=== PATIENT | male | born 1965 | race Caucasian/White ===

== ENCOUNTER 2021-10-08 15:02 | Outpatient (REF) | payer OTHER, SELFPAY ==
[2021-10-08 15:55] LABS: Blood Urea Nitrogen 14 mg/dL (9-16); Estimated Glomerular Filt Rate > 60
== END 2021-10-08 15:03 | disposition home or self-care (01) ==
LOC: HO.LAB 15:02
PROVIDERS: PCP Family Medicine; Visit Provider Family Medicine
DX: Z01.812 Encounter for preprocedural laboratory examination (principal); I10 Essential (primary) hypertension
CPT/HCPCS: 36415; 82565; 84520

== ENCOUNTER 2021-10-14 10:27 | Outpatient (REF) | payer OTHER, SELFPAY ==
--- NOTE | ~2021-10-14 | CT_ITS ---
EXAMINATION: CT ANGIOGRAM ABDOMEN CLINICAL INFORMATION: Essential hypertension. COMPARISON: CTA of abdomen 09/20/2010 TECHNIQUE: Multiple axial images were obtained through the abdomen following the administration of 80 mL Omnipaque 350 intravenous contrast. Images were reviewed on a dedicated 3-D workstation. This CT examination was performed using dose optimization techniques as appropriate, variously including the following: *Automated exposure control *Adjustment of mA and/or kV according to patient size (this includes techniques or standardized protocols for targeted exams where dose is matched to indication/reason for exam; i.e. extremities or head) *Use of iterative reconstruction technique DLP: 145 mGy-cm VASCULAR FINDINGS: The abdominal aorta and the visualized iliac vessels appear normal. No aneurysm. The celiac, SMA and MONICA are all patent. On the right, there are 2 equal sized renal arteries which are widely patent. On the left, there is a small accessory upper pole branch and a larger more dominant renal artery. No stenoses are seen. NONVASCULAR FINDINGS: LUNG BASES: The visualized lung bases are unremarkable. LIVER, GALLBLADDER, AND BILIARY TREE: The liver is normal in size, shape, and attenuation. No focal hepatic lesion or biliary ductal dilatation is present. The gallbladder is unremarkable with no evidence of radiopaque gallstones, gallbladder wall thickening, or obvious pericholecystic inflammatory changes. PANCREAS: Unremarkable. SPLEEN: Unremarkable. A small splenule is present. ADRENAL GLANDS: Unremarkable. No adrenal masses are seen. KIDNEYS AND URETERS: The kidneys are normal in size, shape, and attenuation. No hydronephrosis, hydroureter, or calculi seen. No perinephric stranding. GASTROINTESTINAL TRACT: The visualized bowel appears unremarkable. A few colonic diverticula are seen. ABDOMINAL WALL: No significant hernia is appreciated. LYMPH NODES: No retroperitoneal lymphadenopathy. Osseous structures: Degenerative changes are present in the spine most marked from L2 through L4. CT/CT angio abdomen IMPRESSION: 1. No evidence of renal artery stenosis. 2. Other incidental findings as described above. Fleischner guidelines were followed.
[2021-10-14] MEDS: iohexoL 350 MG/ML 100 ML INFUS..BTL 80 ML IV (11:25)
== END 2021-10-14 10:28 | disposition home or self-care (01) ==
LOC: HO.CT 10:27
PROVIDERS: Visit Provider Family Medicine
DX: I15.0 Renovascular hypertension (principal)
CPT/HCPCS: 74175; Q9967

== ENCOUNTER 2022-03-14 10:31 | Outpatient (REF) | payer OTHER, SELFPAY ==
[2022-03-14 11:21] LABS: Anion Gap 12 (12-20); Blood Urea Nitrogen 13 mg/dL (9-16); Carbon Dioxide 30 mmol/L (22-29); Chloride 94 mmol/L (96-108); Cholesterol 247 mg/dL; Estimated Glomerular Filt Rate > 60; Glucose Fasting 115 mg/dL (60-99); HDL Cholesterol 62 mg/dL; LDL Cholesterol Calculated 168 mg/dl; Potassium 3.6 mmol/L (3.3-5.1); Sodium 132 mmol/L (135-145); Triglycerides 86 mg/dL
[2022-03-14 11:23] LABS: Estimated Average Glucose 114 mg/dL; Hemoglobin A1c % 5.6 %
== END 2022-03-14 10:32 | disposition home or self-care (01) ==
LOC: HO.LAB 10:31
PROVIDERS: PCP Family Medicine; Visit Provider Family Medicine
DX: I10 Essential (primary) hypertension (principal); E78.00 Pure hypercholesterolemia, unspecified; R73.9 Hyperglycemia, unspecified
CPT/HCPCS: 36415; 80051; 80061; 82565; 82947; 83036; 84520

== ENCOUNTER 2022-05-29 12:55 | Outpatient (REF) | payer OTHER, SELFPAY ==
--- NOTE | ~2022-05-29 | XR_ITS ---
EXAMINATION: XR CHEST CLINICAL INFORMATION: Shortness of breath. COMPARISON: Chest radiograph 04/20/2017. TECHNIQUE: 2 views of the chest were obtained. FINDINGS: No significant abnormality is noted involving the heart, lungs, mediastinum, bony thorax or soft tissues. XR/XR chest 2V IMPRESSION: Unremarkable examination.
== END 2022-05-29 12:56 | disposition home or self-care (01) ==
LOC: HO.XRAY 12:55
PROVIDERS: PCP Family Medicine; Visit Provider Family Medicine
DX: R06.02 Shortness of breath (principal)
CPT/HCPCS: 71046

== ENCOUNTER 2022-10-06 11:18 | Outpatient (REF) | payer OTHER, SELFPAY ==
[2022-10-06 13:06] LABS: Alanine Aminotransferase 20 U/L (0-40); Anion Gap 11 (12-20); Aspartate Amino Transferase 20 U/L (5-37); Blood Urea Nitrogen 12 mg/dL (9-16); Carbon Dioxide 33 mmol/L (22-29); Chloride 97 mmol/L (96-108); Cholesterol 175 mg/dL; Estimated Glomerular Filt Rate > 60; HDL Cholesterol 72 mg/dL; LDL Cholesterol Calculated 88 mg/dl; Potassium 3.9 mmol/L (3.3-5.1); Sodium 137 mmol/L (135-145); Triglycerides 77 mg/dL
== END 2022-10-06 11:19 | disposition home or self-care (01) ==
LOC: HO.LAB 11:18
PROVIDERS: PCP Family Medicine; Visit Provider Family Medicine
DX: I10 Essential (primary) hypertension (principal); E78.00 Pure hypercholesterolemia, unspecified; Z79.899 Other long term (current) drug therapy
CPT/HCPCS: 36415; 80051; 80061; 82550; 82565; 84450; 84460; 84520

== ENCOUNTER 2022-11-05 15:24 | Outpatient (REF) | payer OTHER, SELFPAY ==
--- NOTE | ~2022-11-05 | US_ITS ---
EXAMINATION: US EXTRACRANIAL CAROTID DUPLEX, BILATERAL CLINICAL INFORMATION: Hypercholesterolemia. Hypertension. COMPARISON: None available. TECHNIQUE: Real-time ultrasound and Doppler techniques (integrating B-mode 2-D vascular images, Doppler spectral analysis and color-flow Doppler imaging) were utilized to interrogate the extracranial carotid arteries, the vertebral arteries and proximal subclavian arteries bilaterally. The degree of stenosis is determined by criteria similar to NASCET. FINDINGS: Right Side: 1. There is no atherosclerotic plaque seen in the bifurcation/proximal ICA region. 2. The common carotid artery PSV proximally is 122 cm/s and distally 82 cm/s. 3. The proximal internal carotid artery velocities are 72 cm/s systolic and 32 cm/s diastolic. 4. The proximal external carotid artery PSV is 132 cm/s. 5. The vertebral artery shows antegrade flow. 6. The subclavian artery waveforms are normal. Left Side: 1. There is no atherosclerotic plaque seen in the bifurcation/proximal ICA region. 2. The common carotid artery PSV proximally is 130 cm/s and distally 100 cm/s. 3. The proximal internal carotid artery velocities are 82 cm/s systolic and 25 cm/s diastolic. 4. The proximal external carotid artery PSV is 136 cm/s. 5. The vertebral artery shows antegrade flow. 6. The subclavian artery waveforms are normal. US/US carotid duplex BI IMPRESSION: 1. RIGHT: Normal right internal carotid artery without atherosclerotic plaque or hemodynamically significant stenosis. 2. LEFT: Normal left internal carotid artery without atherosclerotic plaque or hemodynamically significant stenosis.
== END 2022-11-05 15:25 | disposition home or self-care (01) ==
LOC: HO.US 15:24
PROVIDERS: PCP Family Medicine; Visit Provider Family Medicine
DX: I10 Essential (primary) hypertension (principal); E78.00 Pure hypercholesterolemia, unspecified; R09.89 Other specified symptoms and signs involving the circulatory and respiratory systems
CPT/HCPCS: 93880

== ENCOUNTER 2023-05-11 16:42 | Outpatient (REF) | payer OTHER, SELFPAY ==
[2023-05-11 18:30] LABS: Alanine Aminotransferase 26 U/L (0-40); Anion Gap 9 (12-20); Aspartate Amino Transferase 27 U/L (5-37); Blood Urea Nitrogen 9 mg/dL (9-16); Carbon Dioxide 33 mmol/L (22-29); Chloride 95 mmol/L (96-108); Estimated Glomerular Filt Rate > 60; Sodium 133 mmol/L (135-145)
== END 2023-05-11 16:43 | disposition home or self-care (01) ==
LOC: HO.LAB 16:42
PROVIDERS: PCP Family Medicine; Visit Provider Family Medicine
DX: I10 Essential (primary) hypertension (principal); E78.00 Pure hypercholesterolemia, unspecified; Z79.899 Other long term (current) drug therapy
CPT/HCPCS: 36415; 80051; 82550; 82565; 84450; 84460; 84520

== ENCOUNTER 2023-06-16 12:56 | Outpatient (REF) | payer OTHER, SELFPAY ==
[2023-06-16 13:04] LABS: MANUAL DIFF FLAG NO
[2023-06-16 13:31] LABS: Basophils Percent Auto 0.6 % (0-2); Eosinophils Absolute Auto 0.2 X10*3/uL (0.0-0.4); Hematocrit 36.1 % (42.0-52.0); Hemoglobin 11.9 g/dl (14.0-18.0); Imm Gran Abs Auto 0.01 X10*3/uL (0.00-0.03); Imm Gran Pct Auto 0.2 % (0.0-0.4); Lymphocytes Absolute Auto 0.8 X10*3/uL (1.2-4.9); Lymphocytes Percent Auto 15.9 % (20-40); Mean Corpuscular Hemoglobin 28.3 pg (27.0-33.0); Monocytes Absolute Auto 0.5 X10*3/uL (0.1-1.2); Monocytes Percent Auto 10.3 % (2-11); Neutrophils Absolute Auto 3.5 x10*3/uL (2.0-8.3); Platelet Count 233 X10*3/uL (160-400)
== END 2023-06-16 12:57 | disposition home or self-care (01) ==
LOC: HO.LAB 12:56
PROVIDERS: PCP Family Medicine; Visit Provider Family Medicine
DX: R53.83 Other fatigue (principal); L03.90 Cellulitis, unspecified
CPT/HCPCS: 36415; 85025

== ENCOUNTER 2023-08-17 14:24 | Outpatient (REF) | payer OTHER, SELFPAY ==
[2023-08-17 15:23] LABS: Anion Gap 10 (12-20); Blood Urea Nitrogen 11 mg/dL (9-16); Carbon Dioxide 32 mmol/L (22-29); Chloride 99 mmol/L (96-108); Estimated Glomerular Filt Rate > 60; Potassium 4.3 mmol/L (3.3-5.1); Sodium 137 mmol/L (135-145)
== END 2023-08-17 14:25 | disposition home or self-care (01) ==
LOC: HO.LAB 14:24
PROVIDERS: PCP Family Medicine; Visit Provider Family Medicine
DX: I10 Essential (primary) hypertension (principal)
CPT/HCPCS: 36415; 80051; 82565; 84520

== ENCOUNTER 2023-08-19 13:38 | Outpatient (REF) | payer OTHER, SELFPAY ==
--- NOTE | ~2023-08-19 | CT_ITS ---
EXAMINATION: CT SOFT TISSUE NECK WITH CONTRAST CLINICAL INFORMATION: Large left posterior neck palpable lymph node, rule out mass. 58-year-old male. COMPARISON: None available. TECHNIQUE: Following the intravenous administration of 60 mL of Omnipaque 350 intravenous contrast, helical imaging was performed in the axial plane with generation of coronal and sagittal reformatted images. This CT examination was performed using dose optimization techniques as appropriate, variously including the following: *Automated exposure control *Adjustment of mA and/or kV according to patient size (this includes techniques or standardized protocols for targeted exams where dose is matched to indication/reason for exam; i.e. extremities or head) *Use of iterative reconstruction technique DLP: 364 mGy-cm FINDINGS: -Area of palpable concern in the left posterior neck has been marked with a BB by the technologist. Immediately underlying is a 7 mm short axis lymph node, level 5, with preserved normal morphology and small fatty hilum. This is most likely reactive. -In addition, there are are bilateral low occipital subcutaneous nodes present measuring up to 6 and 7 mm short axis, with preservation of andra architecture and fatty colby. Left high level 5a lymph node measures 9 mm short axis, with preservation of fatty hilum. No pathologic adenopathy is identified by size criteria or morphology. No soft tissue mass is present. The lymph nodes are most consistent with reactive etiology. -Imaged intracranial contents demonstrate no mass effect, edema, or abnormal enhancement. Cortical and dural venous sinuses are patent. Persistent right occipital sinus. Globes and orbital contents appear normal. Minimal mucosal thickening present in the dependent left maxillary sinus. Paranasal sinuses are otherwise normally pneumatized. Mastoids and tympanic cavities are pneumatized. The imaged calvarium and skull base appear normal. -Streak artifact from dental amalgam mildly limits evaluation of structures in the occlusal plane. -No foundry helper space abnormality. Parapharyngeal fat planes are preserved. -Mildly prominent palatine tonsillar tissue is present bilaterally with small tonsilliths. Tonsillar pillar soft tissues otherwise normal. -No retropharyngeal abnormality. -No carotid sheath abnormality. -Visceral and mucosal spaces appear normal. -The true vocal cords are abducted, likely due to breath-hold. Normal-appearing larynx and aryepiglottic folds. -Normal salivary glands. -No significant anterior cervical chain adenopathy. -Imaged superior mediastinal contents and thyroid gland are normal. -Imaged lung apices are clear. CT/CT soft tissue neck w IV con IMPRESSION: 1. Mildly prominent but non-pathological appearing left level 5 and bilateral lower occipital lymph nodes, presumably reactive. Consider follow-up CT examination of the neck with contrast should palpable foci persist. Ultrasound could also be performed as a follow-up exam. 2. No definite neck mass. 3. Ancillary findings as discussed above.
[2023-08-19] MEDS: iohexoL 350 MG/ML 100 ML INFUS..BTL IV (14:16)
== END 2023-08-19 13:39 | disposition home or self-care (01) ==
LOC: HO.CT 13:38
PROVIDERS: PCP Family Medicine; Visit Provider Family Medicine
DX: R59.0 Localized enlarged lymph nodes (principal)
CPT/HCPCS: 70491; Q9967

== ENCOUNTER → 2023-08-19 13:38 | Outpatient (BNV) | payer OTHER, SELFPAY | PROVIDERS: PCP Family Medicine; Visit Provider Radiology Diagnostic Radiology | DX: R59.9 Enlarged lymph nodes, unspecified (principal) | CPT/HCPCS: 70491 ==

== ENCOUNTER 2024-11-14 15:59 | Outpatient (AMB) | payer OTHER, SELFPAY ==
--- NOTE | 2024-11-14 16:01 | A.OFFPC_ITS ---
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 Imaging Required: No Accompanied by: Self / Same As Patient Allergies ezetimibe (From ZETIA) Allergy (Unknown, Verified 11/14/24 16:01) UNKNOWN Hplvdld-ONM-WmN Reductase Inhibitor (PVAOMXJ-NUP-RRJ REDUCTASE INHIBITOR) Allergy (Unknown, Verified 11/14/24 16:01) UNKNOWN From AUGMENTIN Allergy (Unknown, Uncoded 11/16/19 15:42) UNKNOWN From Augmentin Allergy (Unknown, Uncoded 11/16/19 15:42) UNKNOWN From BUSPAR Allergy (Unknown, Uncoded 11/16/19 15:42) UNKNOWN Tobacco use date assessed: 11/14/24 Dental Screening Dental Screen Date: 11/14/24 Did you have a dental visit in the last 12 months?: Yes Was dental information given to patient?: Patient has dentist HPI HPI Comments History of Present Illness Details The patient is a 59-year-old male presenting with essential hyper tension requiring review and management. He reports a long history of high blood pressure beginning in his mid-30s and has been on multiple medications including Lisinopril, hydrochlorothiazide, metoprolol, minoxidil, and tadalafil. The patient indicates his current blood pressure is well-controlled with moderate exercise. The patient is experiencing situational stress due to recent personal and housing changes. He previously used lorazepam for stress management in similar contexts but is seeking to avoid such medications presently. The stress has been ongoing following a breakup and impending relocation which exacerbates his anxiety. The patient also mentions experiencing dyspnea related to prior treatment for a possible sarcoidosis episode in 2010, for which he underwent a bronchoscopy. He associates current breathing issues with allergy flares, controlled currently with montelukast and cetirizine. There is an occasional need for rescue inhalers although no confirmed diagnosis of asthma or COPD is provided. Additionally, the patient reports long-standing gastrointestinal issues including frequent use of loperamide and the development of gastritis post-2010. He describes flexible stool patterns with episodes of constipation alternating with diarrhea. Medical History: - Essential Hypertension, diagnosed in m id-30s - History of Sarcoidosis (Unconfirmed) - Situational Stress - Dyspnea - Allergic Rhinitis - Gastritis with gastrointestinal distur bances Surgical History: - Knee meniscus surgery on both legs - 2010 bronchoscopy for lung evaluation Medications: - Lisinopril 60 mg, for hypertension - Hydrochlorothiazide 37.5 mg, for hyper tension - Metoprolol tartrate, for hypertension and heart rate control - Minoxidil, for hypertension - Tadalafil, for blood pressure manageme nt - Nexium, for gastrointestinal issues - Montelukast (Singulair), for respirato ry issues/allergies - Cetirizine (Zyrtec), for allergic rhin itis - Loperamide, for gastrointestinal issue s and prophylaxis against diarrhea Diagnostic Results: - Bronchoscopy in 2010 post dyspnea. - Ultrasound of renal arteries showing n ormal findings (date not provided). - Carotid duplex in 2021 showing normal bilateral carotid artery findings. - Abdominal CT with no enlargement or st enosis noted (year not specified). 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 1. Little interest or pleasure in doing things: not at all 2. Feeling down, depressed, or hopeless: not at all 3. Trouble falling or staying asleep, or sleeping too much: not at all 4. Feeling tired or having little energy: not at all 5. Poor appetite or overeating: not at all 6. Feeling bad about yourself - or that you are a failure or have let yourself or your family down: not at all 7. Trouble concentrating on things, such as reading the newspaper or watching television: not at all 8. Moving or speaking so slowly that other people could have noticed. Or the opposite - being so fidgety or restless that you have been moving around a lot more than usual: not at all 9. Thoughts that you would be better off or of hurting yourself in some way: not at all Total score: 0 Depression Screening Interpretation: Negative Depression Screening Done: Yes 78600 - PHQ-9 Billing: Yes Source: Developed by Drs. Matthew Martinez, Fawn Phipps, Valentino Cho and colleagues, with an educational darshan from [employer]. Thrive Questionnaire Date Thrive assessed: 11/14/24 I am a: Patient What is your living situation today?: I have a steady place to live Within the past 12 months, did the food you bought not last and you didn't have the money to get more?: Never true Within the past 12 months, did you worry whether your food would run out before you got money to buy more?: Never true Do you have trouble paying for medicines?: No Do you have trouble getting transportation to medical appointments?: No Do you have trouble paying your heating and electricity bill?: No Do you have trouble taking care of your child, family member or friend?: No Do you have trouble with day-to-day activities such as bathing, preparing meals, shopping, managing finances, etc.?: No Are you currently unemployed and looking for a job?: No Are you interested in more education?: No THRIVE Score: 0 AUDIT C Alcohol Use Questionnaire (AUDIT-C) 1. How often do you have a drink containing alcohol?: 2-3 times a week 2. How many drinks containing alcohol do you have on a typical day when you are drinking?: 7 to 9 3. How often do you have six or more drinks on one occasion?: Weekly Total Score: 9 AMBER-7 AMB Questionnaire AMBER-7 Date AMBER - 7 assessed: 11/14/24 Feeling nervous, anxious, or on edge: 0 = Not at all Not being able to stop or control worryin = Not at all Worrying too much about different things: 0 = Not at all Trouble relaxin = Not at all Being so restless that it is hard to sit still: 0 = Not at all Becoming easily annoyed or irritable: 0 = Not at all Feeling afraid as if something awful might happen: 0 = Not at all Total AMBER-7 score (0-4 normal; 5-9 mild; 10-14 moderate; 15-21 severe): 0 Source: Developed by Drs. Matthew Martinez, Fawn Phipps, Valentino Cho and colleagues, with an educational darshan from [employer]. AMBER-7 Assessment Billing AMBER-7 Assessment Tool: AMBER-7 Assessment 34680 Review of Systems Const Details: - Cardiovascular: Reports diagnosed essential hypertension - Respiratory: Reports dyspnea, denies recent acute exacerbations - Gastrointestinal: Reports alternating patterns of constipation and diarrhea, uses loperamide - Neurological: Reports frequent headaches, managed with Tylenol and tension headache medications - Psychological: Reports situational stress, seeking to avoid anxiolytic medications All systems reviewed & are unremarkable except as reviewed in HPI and above Physical exam (Primary Care) Vital Signs: Last Vital Signs Pulse 65 11/14/24 16:08 Resp 18 11/14/24 16:08 BP 136/64 11/14/24 16:08 Pulse Ox 96 11/14/24 16:08 Oxygen Delivery Method Room Air 11/14/24 16:08 BMI result Body Mass Index 27.4 Tobacco/Smoking Status: Tobacco use Status Tobacco use date assessed 11/14/24 11/14/24 16:03 Patient Tobacco Use Status Never used Tobacco 11/14/24 16:08 e-Cigarette/Vaping Use Never Used 11/14/24 16:08 PHQ-9: PHQ-9 Score PHQ-9: Total score 0 11/14/24 16:36 Depression Screening Interpretation: Negative Thrive Assessment: Date of Thrive Assessment Date Thrive assessed 11/14/24 11/14/24 16:08 Const Other: General: +Alert and oriented, Well nourished, No acute distress. Eye: Pupils are equal, round and reactive to light, Intact accommodation, Extraocular movements are intact, Normal conjunctiva, Vision unchanged. HENT: Normocephalic, Atraumatic, Tympanic membranes are clear, Normal hearing, Oral mucosa is moist, No pharyngeal erythema, Ear canals patent. Respiratory: Lungs CTA bilaterally, No wheeze, Respirations are non-labored. Cardiovascular: Regular rate, Regular rhythm, S1 auscultated, S2 auscultated, No murmur, Good pulses equal in all extremities, Normal peripheral perfusion, No edema. Gastrointestinal: Soft, Non-tender, Non-distended, Normal bowel sounds, No organomegaly. Musculoskeletal: Normal range of motion, Normal strength, No tenderness, No swelling, No deformity, Normal gait. Integumentary: Warm, Dry, [place], Intact. Neurologic: Alert, Oriented, Normal sensory, Normal motor function, No focal defects, Cranial Nerves II-XII are grossly intact, Normal deep tendon reflexes. Psychiatric: Cooperative, Appropriate mood & affect, Normal judgment. Coding Level of Care Code New Pt Level 4 (91773) Diagnoses Hypertension I10 Abnormal bowel movement R19.8 Dyspnea R06.00 Additional Codes AMBER-7 Assessment Billing - AMBER-7 Assessment Tool: AMBER-7 Assessment 58300 ([id number]) PHQ-9 - 59150 - PHQ-9 Billing: Yes ([id number]) Assessment & Plan Assessment & Plan (1) Hypertension: Comment: - Plan: Review and adjust current medication regimen as needed based on blood pressure readings. Discuss the potential discontinuation of tadalafil due to its use not being clinically justified for hypertension management. Encourage exercise as a component of non-pharmacologic blood pressure control. Arrange follow-up in four weeks to monitor effectiveness and explore other medication options. Code(s): I10 - Essential (primary) hypertension Category: Medical (2) Abnormal bowel movement: Comment: - Reports alternating between diarrhea & constipation. Will obtain AXR to evaluate for stool burden to look for overflow dirrhea Code(s): R19.8 - Other specified symptoms and signs involving the digestive system and abdomen Category: Medical (3) Dyspnea: Comment: - Plan: Recommend pulmonary function testing (spirometry) to evaluate possible underlying respiratory concerns such as asthma or restrictive lung disease. Consider referral to pulmonology if indicated. Code(s): R06.00 - Dyspnea, unspecified Category: Medical Plan: Healthcare Maintenance: - Regular exercise encouraged for cardiovascular health. - Suggest dietary modifications to include higher fiber content to aid gastrointestinal function and stool regularity. - Smoking cessation advice was given though the patient is a non-smoker. Plan During today's visit, I discussed thoroughly with the patient the inappropriate use of tadalafil for blood pressure control and potential risks associated with it. We explored alternative medication routes for managing hypertension while enforcing lifestyle changes such as regular exercise. For the situational anxiety, I provided supportive suggestions but advised against benzodiazepines due to addiction risks. The potential respiratory diagnoses and underlying causes of dyspnea were also covered, with plans for spirometry outlined. We addressed the possibility of gastrointestinal overflow and agreed to conduct an abdominal X-ray as part of the diagnostic workup. Orders: Orders Metanephrines, Plasma Today I10 - Essential (primary) hypertension Complete Blood Count Auto Diff Today I10 - Essential (primary) hypertension Comprehensive Met. Panel Today I10 - Essential (primary) hypertension Hemoglobin A1c Today I10 - Essential (primary) hypertension Vitamin D 25-OH Total Today I10 - Essential (primary) hypertension XR abdomen 1V Today R19.8 - Other specified symptoms and signs involving the digestive system and abdomen Metanephrines, Random Urine Today I10 - Essential (primary) hypertension Lipid Panel Today I10 - Essential (primary) hypertension TSH reflex Free T4 Today I10 - Essential (primary) hypertension Pulmonary Test/Procedure Today R06.00 - Dyspnea, unspecified Patient Instructions: - Follow up in four weeks for blood pressure check and medication evaluation. - Continue with regular exercise to manage blood pressure. - Schedule the abdominal x-ray as advised. - Monitor stress levels, and practice suggested coping strategies. - Reach out if any symptoms worsen or new concerns arise before the follow-up visit.
[2024-11-14 16:08] VITALS: BP 136/64; PULSE 65; RESP 18; O2SAT 96; BMI 27.4
--- OUTSIDE RECORDS SUMMARY | 2024-11-14 19:00 | XMS_ITS | Clinical Summary ---
Author Organization [facility] [address] [facility] Address [address] [place] [address] Phone Care Team Providers Care Utility Bill Collector Name Role Phone Rodríguez Sanchez MD Primary Care Provider [phone] Allergies Active Allergy Reactions Criticality Noted Date Comments Amoxicillin Other 06/07/2024 amoxicillin Ondansetron Hcl 06/07/2024 Other Reaction(s): made worse with nausea Medications esomeprazole (NexIUM) [address] capsuleIndicatio ns:Gastroesophag eal reflux disease without esophagitis Take 1 capsule (40 mg total) by mouth 2 (two) times a day. Do not open capsule. 60 each 1 05/12/19 25 026 Active tadalafiL (CIALIS) 10 mg tablet TAKE 1 TABLET BY MOUTH DAILY AT BEDTIME FOR BLOOD PRESSURE Active simvastatin (ZOCOR) 10 mg tablet Take 1 tablet (10 mg total) by mouth at bedtime. 06/01/19 25 Active Zoryve 0.3 % foam APPLY TOPICALLY TO SCALP EVERY DAY 05/05/19 25 Active montelukast (SINGULAIR) 10 mg tablet Take 1 tablet (10 mg total) by mouth 1 (one) time each day. 04/28/19 25 Active minoxidiL (LONITEN) 2.5 mg tablet Take 2 tablets (5 mg total) by mouth. at bedtime 03/30/19 25 Active metoprolol tartrate (LOPRESSOR) 25 mg tablet Take 1 tablet (25 mg total) by mouth 2 (two) times a day. 03/31/19 25 Active LORazepam (ATIVAN) 0.5 mg tablet Take 1 tablet (0.5 mg total) by mouth every 8 (eight) hours if needed. Max Daily Amount: 1.5 mg Active lisinopril-hydro CHLOROthiazide (PRINZIDE,ZESTOR ETIC) 20-12.5 mg per tablet Take 1 tablet by mouth. 05/02/19 09 Active ketoconazole (NIZORAL) 2 % shampoo SHAMPOO DAILY UNTIL BETTER THAN 2 TO 3 TIMES WEEKLY FOR MAINTENANCE Active fluorometholone acetate (FLAREX OPHT) 4 times a day, PRN Other, 0 Refills, Maintenance, 10/13/23 1:19:00 PM EDT, Partial fill upon patient request if the prescription is for a schedule II opioid drug. 10/13/19 Active EPINEPHrine (EpiPen 2-Maximo) 0.3 mg/0.3 mL injection 1 pen injector intramuscularly 01/31/20 15 Active cyclobenzaprine (FLEXERIL) 5 mg tablet TAKE 2 TABLETS BY MOUTH AT BEDTIME FOR BACK PAIN Active ciclopirox 1 % shampoo APPLY TOPICALLY TO THE AFFECTED AREA EVERY DAY UNTIL BETTER THEN USE 2-3 TIMES WEEKLY FOR MAINTENANCE 05/03/19 25 Active betamethasone dipropionate (DIPROSONE) 0.05 % cream APPLY TOPICALLY TO THE AFFECTED AREA TWICE DAILY NEEDED Active BENZONATATE ORAL Take 100 mg by mouth. 10/13/19 24 Active aspirin-acetamin ophen-caffeine (Excedrin Extra Strength) 250-250-65 mg per tablet See Instructions, By Mouth. three tab. daily in am, 0 Refills 05/02/19 Active [address] capsuleIndicatio ns:Gastroesophag eal reflux disease without esophagitis Take 1 capsule (40 mg total) by mouth 2 (two) times a day. Do not open capsule. 60 each 11 06/08/19 25 026 Active Active Problems Problem Noted Date Diagnosed Date Anxiety 06/07/2024 Gastroesophageal reflux disease without esophagi tis 06/07/2024 Assessment & Plan (06/07/2024 5:45 PM EDT): Stable. Continue Nexium brand only 40 mg twice daily Orders: NexIUM [address] capsule; Take 1 capsule (40 mg total) by mouth 2 (two) times a day. Do not open capsule. HTN (hypertension) 06/07/2024 Asthma 06/07/2024 Sarcoid 06/07/2024 Blood clot in eye 06/07/2024 Overview (06/07/2024): Right eye HLD (hyperlipidemia) 06/07/2024 Hearing loss of right ear 06/07/2024 Surgical History Surgery Date Site/Laterality Comments COLONOSCOPY 01/29/2021 - 02/28/2021 Unremarkable 10-year recall ESOPHAGOGASTRODUODENOSCOPY 01/29/2021 - 02/28/2021 Unremarkable OTHER SURGICAL HISTORY 05/31/2011 - 06/29/2011 Capsule endoscopy -unremarkable Social History Tobacco Use Types Packs/Day Years Used Date Smoking Tobacco: Never Smokeless Tobacco: Never Tobacco Cessation:Counseling Given: Not Answered Alcohol Use Standard Drinks/Week Comments Yes 0 (1 standard drink = 0.6 oz pur e alcohol) social Sex and Gender Information Value Date Recorded Sex Assigned at Not on file Legal Sex Male 2:29 PM EST Gender Identity Not on file Sexual Orientation Not on file Obstetrics History Last Filed Vital Signs Vital Sign Reading Time Taken Comments Blood Pressure - - Pulse - - Temperature - - Respiratory Rate - - Oxygen Saturation - - Inhaled Oxygen Concentration - - Weight 83 kg (183 lb) 06/07/2024 3:26 PM EDT Height 170.2 cm (5' 7 ) 06/07/2024 3:26 PM EDT Body Mass Index 28.66 06/07/2024 3:26 PM EDT Plan of Treatment Health Maintenance Due Date Last Done Comments DTaP,Tdap,and Td Vaccines (1 - Tdap) 08/13/1986 Hepatitis B Vaccines (1 of 3 - 19+ 3-dose series) 08/13/1986 Pneumococcal Vaccine: 50+ Years (1 of 2 - PCV) 08/13/1986 Zoster Vaccines (1 of 2) 08/13/2017 Depression Screening 03/01/2024 Cholesterol Screening (Lipid Panel) 05/11/2024 HIV Screening 05/11/2024 Hepatitis C Screening 05/11/2024 Social Influencers of Health Screening 05/11/2024 Hypertension/CHF/CAD Annual BMP Blood Test 06/01/2024 COVID-19 Vaccine (3 - 2024-2 6 season) 2024 07/02/2020, 06/06/2020 Influenza Vaccine (#1) 2024 Colorectal Cancer Screening: Colonoscopy 06/08/2034 06/08/2024, 02/26/2021, 06/18/2011 HIB Vaccines Aged Out No longer eligi ble based on patient's age to complete this topic HPV Vaccines Aged Out No longer eligi ble based on patient's age to complete this topic Hepatitis A Vaccines Aged Out No long er eligible based on patient's age to complete this topic IPV Vaccines Aged Out No longer eligi ble based on patient's age to complete this topic MMR Vaccines Aged Out No longer eligi ble based on patient's age to complete this topic Meningococcal ACWY Vaccine Aged Out N o longer eligible based on patient's age to complete this topic Meningococcal B Vaccine Aged Out No l onger eligible based on patient's age to complete this topic RSV Immunization Patients Under 20 months Aged Out No longer eligible b ased on patient's age to complete this topic Varicella Vaccines Aged Out No longer eligible based on patient's age to complete this topic Procedures Procedure Name Priority Date/Time Associated Diagnosis Comments COLONOSCOPY Routine 06/08/2024 1:10 PM EDT from Last 3 Months or Most Recently Relevant to Health Maintenance Results * COLONOSCOPY (06/08/2024 1:10 PM EDT) Anatomical Region Laterality Modality Endoscopy us Historical Provider GI~PROCEDURE ORDERABLES F inal Result from Last 3 Months or Most Recently Relevant to Health Maintenance Insurance [address] [place] [address] Care Teams Utility Bill Collector Relationship Specialty Start Date End Date Rodríguez Sanchez MD [address] [place] [address] [address] [place] [id number] PCP - General Internal Medicine 06/06/24
== END 2024-11-14 17:30 | disposition home or self-care (01) ==
LOC: HO.HMCHD 16:00
PROVIDERS: PCP Family Medicine; Visit Provider Student in an Organized Health Care Education/Training Program
DX: I10 Essential (primary) hypertension (principal); R19.8 Other specified symptoms and signs involving the digestive system and abdomen; R06.00 Dyspnea, unspecified

== ENCOUNTER → 2024-11-14 15:59 | Outpatient (BNVA) | payer OTHER, SELFPAY | PROVIDERS: PCP Family Medicine; Visit Provider Student in an Organized Health Care Education/Training Program | DX: I10 Essential (primary) hypertension (principal); R19.8 Other specified symptoms and signs involving the digestive system and abdomen; R06.00 Dyspnea, unspecified; Z79.899 Other long term (current) drug therapy; Z13.31 Encounter for screening for depression; Z13.39 Encounter for screening examination for other mental health and behavioral disorders | CPT/HCPCS: 96127 ==

== ENCOUNTER 2025-01-13 13:01 | Outpatient (REF) | payer OTHER, SELFPAY ==
--- NOTE | ~2025-01-13 | XR_ITS ---
EXAMINATION: XR ABDOMEN KUB CLINICAL INDICATION: R19.8 - Other specified symptoms and signs involving the digestive syste... COMPARISON: None available. Correlation made with CT angiogram of the abdomen 10/14/2021. TECHNIQUE: AP view of the abdomen, supine. FINDINGS: Bowel gas pattern is normal/nonspecific. There is no focally dilated loop identified. There is moderate fecal material seen throughout the colon suggestive of moderate constipation. There is no organomegaly identified. There is no large abdominal mass. Lung bases are clear. There are mild vascular calcifications in the soft tissues. No additional abnormal soft tissue calcification present. Osseous structures demonstrate no suspicious findings. There are mild degenerative changes in the spine. XR/XR abdomen 1V IMPRESSION: 1. No acute findings in the abdomen. Moderate constipation. Electronically signed by: Darrin Manning MD 01/15/2025 09:29 AM MARYCHUY SIMPSON
--- OUTSIDE RECORDS SUMMARY | 2025-01-13 13:05 | XMS_ITS | Continuity of Care Document ---
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 Plan of Treatment Reminders Order Date Submit Date Provider Last Modified By Organization Details Last Modified Time Details Appointments Establish ed 30 2024 03:00P Corin Rosario MD Not available Not available Not available Establish ed 30 2024 03:00P Corin Rosario MD Not available Not available Not available Establish ed 15 2025 04:00P Corin Rosario MD Not available Not available Not available Establish ed 30 2025 04:00P Corin Rosario MD Not available Not available Not available Establish ed 15 2025 04:00P Corin Rosario MD Not available Not available Not available Establish ed 15 2025 04:00P Corin Rosario MD Not available Not available Not available Establish ed 15 2025 04:00P Corin Rosario MD Not available Not available Not available Establish ed 15 2025 04:00P Corin Rosario MD Not available Not available Not available Lab None recorded. Referral None recorded. Procedures None recorded. Surgeries None recorded. Imaging None recorded. Medication Orders ofloxacin 0.3 % ear drops 2024 025 [id number], [id number] [facility], [place], [place], [phone], 11/22/2024 15:43:12 Patient TargetsNo targets recorded. Patient InstructionsNo instructions recorded. Reason for Referral None Reported. 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; Note: Date Diagnosed : 09/04/2014 11:08 AM (478.5) Not Available [facility] 4 02:53:47 Allergic rhinitis caused by pollen 10154780 Active 2014 Allergic rhinitis due to pollen; Note: Date Diagnosed : 12/06/2014 4:09 PM (J30.1) Not Available [facility] 4 02:53:51 Uncomplic ated asthma 604969719 Active 2014 Unspecifi ed asthma, uncomplic ated; Note: Date Diagnosed : 12/06/2014 4:09 PM (J45.909) Not Available [facility] 4 02:53:45 Impacted cerumen of bilateral ears 04411088702 08398 Active 2014 Impacted cerumen, bilateral ; Note: Date Diagnosed : 12/06/2014 4:09 PM (H61.23) RENÉ HAINES MD [address] [place] [address], [facility] [place], [address] , [facility] - [facility] 5 15:26:33 Difficult y speaking Active 2014 Hoarsenes s; Note: Date Diagnosed : 5 5:56 PM (784.49) Hoarsen ess; Note: Date Diagnosed : 09/21/2014 4:40 PM (784.49) ; Start Date : 5 Not Available [facility] 4 02:53:51 Dysphonia 54774606 Active 2014 Hoarsenes s; Note: Date Diagnosed : 5 8:52 AM (R49.0) Not Available [facility] 4 02:53:51 Otalgia of left ear 6782412143 Active 2019 Otalgia, left ear; Note: Date Diagnosed : 0 3:36 PM (H92.02) Not Available [facility] 4 02:53:50 Bilateral temporoma ndibular joint pain 12233338823 711596 Active 2019 Arthralgi a of bilateral temporoma ndibular joint; Note: Date Diagnosed : 0 3:37 PM (M26.623) Not Available [facility] 4 02:53:49 Xerostomi a 56328695 Active 2021 Dry mouth, unspecifi ed; Note: Date Diagnosed : 02/04/2022 4:48 PM (R68.2) Not Available [facility] 4 02:53:48 Essential hypertens ion 95054362 Active 2021 Essential (primary) hypertens ion; Note: Date Diagnosed : 02/04/2022 4:48 PM (I10) Not Available [facility] 4 02:53:47 Disorder of right Eustachia n tube 02357885552 84150 Active 2022 Other specified disorders of Eustachia n tube, right ear; Note: Date Diagnosed : 07/01/2022 1:17 PM (H69.81) Not Available [facility] 4 02:53:48 Diffuse otitis externa 62552557 Active 2023 Diffuse otitis externa, left ear; Note: Date Diagnosed : 06/30/2023 4:37 PM (H60.312) Not Available [facility] 4 02:53:50 Impacted cerumen in left ear 84390820360 34709 Active 2023 RENÉ HAINES MD [address] [place] [address], [place], [address] , [facility] - [facility] 4 16:48:31 Impacted cerumen in right ear 83177987098 86793 Active 2023 RENÉ HAINES MD [address] [facility],[place] [address], [place], [address] , [facility] - [facility] 4 16:48:31 Otorrhea of left ear 51409357816 21950 Active 2023 RENÉ HAINES MD [address] [place] [address],[place] [address], [place], [address] , [facility] - [facility] 4 16:49:07 Chronic mycotic otitis externa 410775729 Active 2023 RENÉ HAINES MD [address] [place] [address],[place] [address], [place], [address] , [facility] - [facility] 4 08:57:31 Acute infective otitis externa 459523536 Active 2023 RENÉ HAINES MD [address] [place] [address],[place] [address], [place], [address] , [facility] - [facility] 4 09:02:25 Cervical lymphaden opathy 106770399 Active 2023 RENÉ HAINES MD [address] [place] [address],[place] [address], [place], [address] , [facility] - [facility] 4 09:03:20 Candidal otitis externa 93368691 Active 2023 RENÉ HAINES MD [address] [place] [address], [place], [address] , [facility] - [facility] 4 16:49:29 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 RENÉ HAINES MD [address] [place] [address],[place] [address], [place], [address] , [facility] - [facility] 4 16:49:29 Tinnitus of right ear 41179678736 08 Active 2023 RENÉ HAINES MD [address] [place] [address],[place] [address], [place], [address] , [place] - [facility] 15:26:33 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,[place] [address], [place], [address] , [place] - [facility] 5 15:47:05 Sensorine ural hearing loss in right ear 92634205130 100 Active 2024 RENÉ HAINES MD [address] [facility],[place] [address], [place], [place], [address] , [place] [facility] 5 17:10:01 Chronic eczema of external auditory canal 316702455 Active 2024 RENÉ HAINES MD [address] [facility],[place] [address], [place], [place], [address] , [place] - [facility] 5 15:37:47 Dysfuncti on of eustachia n tube 13089420 Active 2024 RENÉ HAINES MD [address] [facility],[place] [address], [place], [address] , [place] [facility] 15:37:55 Problem Notes None recorded. Procedures Surgical History Date Name Laterality Status Provider Name and Address Organization Details Recorded Time Comp Audio with Tymps - 79190 & 58625 completed RENÉ HAINES MD [address] [facility],[place] [address], [place], [address], [place] [facility] 12/12/2024 15:26:38 Cerumen removal with microscope bilateral completed RENÉ HAINES MD [address] [facility],[place] [address], [place], [address], [place] [facility] 12/12/2024 15:26:38 09/24/202 5 Comp Audio with Tymps - 44417 & 25459 completed RENÉ HAINES MD [address] [facility],[address], [address], [place] [facility] 11/22/2024 15:37:25 5 Cerumen removal with microscope bilateral completed RENÉ HAINES MD [address] [facility],[address], [address], [place] [facility] 11/22/2024 15:37:25 5 Comp Audio with Tymps - 22411 & 43278 completed RENÉ HAINES MD [address] [facility],[address], [address], [place] [facility] 10/24/2024 16:43:00 5 Cerumen removal with microscope bilateral completed RENÉ HAINES MD [address] [facility],[address], [address], [place] [facility] 10/24/2024 16:43:00 5 Comp Audio with Tymps - 50200 & 36618 completed RENÉ HAINES MD [address] [facility],[address], [address], [place] [facility] 09/28/2024 16:20:07 5 Cerumen removal with microscope bilateral completed RENÉ HAINES MD [address] [facility],[address], [address], [place] [facility] 09/28/2024 16:20:07 5 Air & Speech Audio with Tymps - 42009, 53172 & 87745 completed MAXI SMITH [address] [facility],[address], [address], [place] [facility] 09/28/2024 15:39:12 5 Comp Audio with Tymps - 73028 & 81920 completed RENÉ HAINES MD [address] [facility],[address], [address], [place] [facility] 08/17/2024 13:42:23 5 Cerumen removal with microscope bilateral completed RENÉ HAINES MD [address] [facility],[address], [address], [place] [facility] 08/17/2024 13:42:23 5 Comp Audio with Tymps - 91308 & 79230 completed RENÉ HAINES MD [address] [facility],[address], [address], [place] [facility] 07/25/2024 16:12:53 5 Cerumen removal with microscope bilateral completed RNEÉ HAINES MD [address] [facility],[address], [address], [place] [facility] 07/25/2024 16:12:53 5 Comp Audio with Tymps - 26298 & 74832 completed RENÉ HAINES MD [address] [facility],[address], [address], [place] [facility] 06/27/2024 16:37:03 5 Cerumen removal with microscope bilateral completed RENÉ HAINES MD [address] [facility],[address], [address], [place] [facility] 06/27/2024 16:37:03 5 Comp Audio with Tymps - 70114 & 70638 completed RENÉ HAINES MD [address] [facility],[address], [address], [place] [facility] 04/25/2024 16:52:27 5 Cerumen removal with microscope bilateral completed RENÉ HAINES MD [address] [facility],[address], [address], [place] [facility] 04/25/2024 16:52:27 5 Comp Audio with Tymps - 48305 & 82878 completed MAXI LAINEZ [address] [facility],[address], [address], [place] [facility] 03/22/2024 15:46:54 5 Cerumen removal with microscope bilateral completed RENÉ HAINES MD [address],[place] [address] [place] [address], [address], [place] [facility] 03/22/2024 15:27:34 4 Cerumen removal with microscope bilateral completed RENÉ HAINES MD [address],[place] [address] [place] [address], [address], [place] [facility] 01/25/2024 17:06:33 4 Cerumen removal with microscope bilateral completed RENÉ HAINES MD [address],[place] [address] [place] [address], [address], [place] [facility] 12/21/2023 16:34:46 4 Cerumen removal with microscope bilateral completed RENÉ HAINES MD [address],[place] [address] [place] [address], [address], [place] [facility] 11/23/2023 17:25:30 4 Cerumen removal with microscope bilateral completed RNEÉ HAINES MD [address],[place] [address] [place] [address], [address], [place] [facility] 10/21/2023 09:04:53 4 Cerumen removal with microscope bilateral completed RENÉ HAINES MD [address], [address], [place] [facility] 08/10/2023 16:48:39 Imaging Results None recorded. Procedure Notes None recorded. Medical Equipment None Reported. Allergies Allergen ID Allergen Name Allergen Category Reaction Reaction Severity Criticality Documentation Date Start Date Code Code System Note Provider Name and Address Organization Details Recorded Time 706375 amoxicill in medicatio n other Not available Not available 07/13/2023 723 RxNorm React ion: unkno wn, unspe cifie d;; Not Available [facility] 4 01:14:43 Medications Name Sig Start Date Stop Date Status Note LastModified by Organization Details LastModified Time budesonid e 32 mcg/actua tion nasal spray 01/17 completed Medicati on ID: [id number] Dur ation Value: 30 Reason: () Brand Name: angel ames Send Method: E-Prescr ibed Sub s Allowed: subs OK Speci al Instruct ion: USE 2 SPRAYS IN EACH NOSTRIL TWICE A DAY Lina King e: angel ames Not Available Not Available Not Available ketoconaz ole 2 % shampoo SHAMPOO DAILY UNTIL BETTER THAN 2 TO 3 TIMES WEEKLY FOR MAINTENA NCE active Not Available Not Available No t Available lisinopri l 20 mg-hydroc hlorothia zide 12.5 mg tablet TAKE 1 TABLET BY MOUTH THREE TIMES DAILY active Not Available Not Available No t Available azithromy mariya 250 mg tablet 12/27 completed Medicati on ID: [id number] Dur ation Value: 5 Reason: () Brand Name: azithrom ycin Sen d Method: E-Prescr ibed Sub s Allowed: subs OK Speci al Instruct ion: TAKE 2 TABLETS BY MOUTH TODAY, THEN TAKE 1 TABLET DAILY FOR 4 DAYS Med icationG enericNa me: azithrom ycin Not Available Not Available Not Available simvastat in 10 mg tablet TAKE 1 TABLET BY MOUTH AT BEDTIME DIRECTED active Not Available Not Available No t Available Nexium 40 mg capsule,d elayed release TAKE 1 CAPSULE BY MOUTH TWICE DAILY active Not Available Not Available No t Available minoxidil 2.5 mg tablet TAKE 2 TABLETS BY MOUTH EVERY DAY AT BEDTIME active Not Available Not Available No t Available sildenafi l 100 mg tablet 03/22 completed Medicati on ID: [id number] D uration Value: 12 Brand Name: sildenaf il Send Method: E-Prescr ibed Sub s Allowed: subs OK Nareni al Instruct ion: TAKE HALF (1/2) OF A TABLET BY MOUTH NEEDED M edicatio nGeneric Name: sildenaf il Not Available Not Available Not Available ofloxacin 0.3 % ear drops Instill 5 drops twice a day by otic route for 5 days. 2024 active Not Available Not Available Not Avai lable amoxicill in 875 mg tablet TAKE 1 TABLET BY MOUTH TWICE DAILY X 10 DAYS 01/24 completed Not Available Not Available Not Available lorazepam 0.5 mg tablet TAKE 1 TABLET BY MOUTH EVERY 8 HOURS NEEDED active Not Available Not Available No t Available benzonata te 100 mg capsule TAKE 1 CAPSULE BY MOUTH NEEDED active Not Available Not Available No t Available cephalexi n 500 mg capsule TAKE 1 CAPSULE BY MOUTH THREE TIMES DAILY FOR 5 DAYS 01/24 completed Not Available Not Available Not Available clotrimaz ole-betam ethasone 1 %-0.05 % topical cream APPLY TO THE SKIN OF THE AFFECTED EXTERNAL EAR CANAL WITH FINGERTI P 3 TIMES PER DAY FOR 2 WEEKS active Not Available Not Available No t Available fluoromet holone 0.1 % eye drops,jhoan pension SHAKE LIQUID AND INSTILL 1 DROP IN BOTH EYES THREE TIMES DAILY active Not Available Not Available No t Available clotrimaz ole 1 % topical solution APPLY 4 DROPS TO THE AFFECTED EAR THREE TIMES DAILY FOR 2 WEEKS 03/22 completed Not Available Not Available Not Available betametha sone dipropion ate 0.05 % topical cream APPLY TOPICALL Y TO THE AFFECTED AREA TWICE DAILY NEEDED active Not Available Not Available No t Available monteluka st 10 mg tablet TAKE 1 TABLET BY MOUTH EVERY DAY active Not Available Not Available No t Available zolpidem 10 mg tablet 2018 active Medicati on ID: [id number] D uration Value: 15 Brand Name: zolpidem Send Method: E-Prescr ibed Sub s Allowed: subs OK Medic ationGen ericName : zolpidem Not Available Not Available Not Available fluoxetin e 20 mg capsule TAKE 1 CAPSULE BY MOUTH EVERY MORNING active Not Available Not Available No t Available betametha sone dipropion ate 0.05 % lotion APPLY TO SCALP AND EARS TWICE DAILY FOR 2 WEEKS. STOP FOR ONE WEEK . REPEAT NEEDED active Not Available Not Available No t Available tobramyci n 0.3 %-dexamet hasone 0.1 % eye drops,jhoan pension INSTILL 4 DROP INTO AFFECTED Ear BY OTIC ROUTE TWICE PER DAY 03/22 completed Not Available Not Available Not Available cyclobenz aprine 5 mg tablet TAKE 2 TABLETS BY MOUTH AT BEDTIME FOR BACK PAIN active Not Available Not Available No t Available Restasis 0.05 % eye drops in a dropperet te 01/24 completed Medicati on ID: [id number] Dur ation Value: 30 Brand Name: Restasis Send Method: E-Prescr ibed Sub s Allowed: subs OK Speci al Instruct ion: PLACE 1 DROP IN EACH EYE TWICE A DAY Medi cationGe nericNam e: Restasis Not Available Not Available Not Available ciclopiro x 1 % shampoo APPLY TOPICALL Y TO THE AFFECTED AREA EVERY DAY UNTIL BETTER THEN USE 2-3 TIMES WEEKLY FOR MAINTENA NCE active Not Available Not Available No t Available tadalafil 10 mg tablet TAKE 1 TABLET BY MOUTH EVERY NIGHT AT BEDTIME FO BLOOD PRESSURE active Not Available Not Available No t Available metoprolo l tartrate 25 mg tablet TAKE 1 TABLET BY MOUTH TWICE DAILY active Not Available Not Available No t Available Zyrtec 10 mg capsule Take 1 capsule by mouth once a day 06/24 completed Medicati on ID: [id number] D uration Value: 30 Prescri bed By Name: Amado Lane MD Brand Name: Zyrtec S end Method: E-Prescr ibed Sub s Allowed: subs OK Medic ationGen ericName : Zyrtec Not Available Not Available Not Available EpiPen 2-Maximo 0.3 mg/0.3 mL injection , auto-inje ctor 1 pen injector intramus cularly 2014 active Medicati on ID: [id number] D uration Value: 1 Prescri bed By Name: Amado Lane MD Brand Name: EpiPen 2-Maximo Se nd Method: E-Prescr ibed Sub s Allowed: subs OK Medic ationGen ericName : EpiPen 2-Maximo Not Available Not Available Not Available Lotemax 0.5 % eye gel drops 01/17 completed Medicati on ID: [id number] D uration Value: 30 Reason: () Brand Name: Lotemax Send Method: E-Prescr ibed Sub s Allowed: subs OK Medic ationGen ericName : Lotemax Not Available Not Available Not Available Zoryve 0.3 % topical foam APPLY TOPICALL Y TO SCALP EVERY DAY active Not Available Not Available No t Available Vitals Date Recorded Body height Body mass index (BMI) Body weight Provider Name and Address Organization Details Last Updated DateTime 11/22/2024 170.18 cm 27.4 kg/m2 55964.66 g Jignesh Wetzel [place] - [facility] 11/22/2024 15:11:58 Social History None recorded. Functional Status None recorded. Mental Status None recorded. Family History Nothing Reported. Medical History No medical history recorded. Past Encounters Encounter ID Performer Location Encounter Start Date Encounter Closed Date Diagnosis/Indication Diagnosis SNOMED-CT Code Diagnosis ICD10 Code Diagnosis IMO Codes Diagnosis Note [id number] RENÉ HAINES MD [facility] [address] [address] 10/24/2024 15:31:24 10/24/2024 16:00:51 Impacted cerumen of bilateral ears 7611157572 135637 H61.23 Recurrent Cerumen Impactions : Ears were meticulous ly cleaned bilaterall y today with a curette and suction. The patient tolerated this well and will follow up for repeat debridemen t per routine. Tinnitus of right ear 48 79113232 108 H93.11 Less bothersome . Will observe. [id number] RENÉ HAINES MD [facility] [address] [address] 11/22/2024 15:07:03 11/22/2024 15:41:15 Impacted cerumen of bilateral ears 0610223616 149199 H61.23 Recurrent Cerumen Impactions : Ears were meticulous ly cleaned bilaterall y today with a curette and suction. The patient tolerated this well and will follow up for repeat debridemen t per routine. Tinnitus of right ear 48 70602629 108 H93.11 Less bothersome . Will observe. Chronic ec zema of external auditory canal 165608776 H60.8X3 [id number] He had some very scant purulent drainage on the right. I recommend treating with drops. He was not interested in taking a steroid drops so we will use ofloxacin which he felt worked well for him in the past. He will keep his follow-up for repeat debridemen t. Health Concerns Section Related Observation LastModified by Organization Sheldon suresh LastModified Time None Recorded Concern Status LastModified by Organization Details LastModified Time None Recorded Payers Encounter Date Sequence Insurance Name Policy Number Policy Dunn Covered Member ID Dunn Member ID Guarantor Name 11/22/2024 1 [facility] [id number] Bulmaro Okeefe [id number] Bulmaro Okeefe Notes Date Note Type Note Provider Name and Address Organization Details Recorded Time 11/22/2024 text/html ROS as noted in the HPI He presents for asymmetric hearing loss AD and cerumen impaction. Prior MRI was negative for retrocochlear pathology. He requires frequent debridements of his ears due to cerumen accumulation. RENÉ HAINES MD [address] [place] [address], [place], [address], [facility] - [facility] 11/22/2024 15:43:00
--- OUTSIDE RECORDS SUMMARY | 2025-01-13 13:05 | XMS_ITS | Data Portability ---
Author Organization [place] [facility], Allergy Address [address] [place] [address] Care Team Providers Care Unloading Checker Name Role Phone NANNETTE SIFUENTES Primary Care [...] available Establish ed 15 2025 04:00P Corin Rosaroi MD Not available Not available Not available Establish ed 15 2025 04:00P Corin Rosario MD Not available Not available Not available Lab None recorded. Referral None recorded. Procedures None recorded. Surgeries None recorded. Imaging None recorded. Medication Orders ofloxacin 0.3 % ear drops 2024 025 [id number], [address] [facility], [place], [place], [phone], 11/22/2024 15:43:12 Patient TargetsNo targets recorded. Patient InstructionsNo instructions recorded. Reason for Referral None Reported. Results Created Date Observation Date Name Description Value Unit Range Abnormal Flag Note LastModifiedBy Organization Detail LastModifiedTime 09/29/19 25 audio gram No observ ation record ed. BARCODE Not Available 2024 17:22:48 Result Notes None recorded. 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; Note: Date Diagnosed : 09/04/2014 11:08 AM (478.5) Not Available [facility] 4 02:53:47 Allergic rhinitis caused by pollen 35182452 Active 2014 Allergic rhinitis due to pollen; Note: Date Diagnosed : 12/06/2014 4:09 PM (J30.1) Not Available [facility] 4 02:53:51 Uncomplic ated asthma 044573312 Active 2014 Unspecifi ed asthma, uncomplic ated; Note: Date Diagnosed : 12/06/2014 4:09 PM (J45.909) Not Available [facility] 4 02:53:45 Impacted cerumen of bilateral ears 30641125046 21310 Active 2014 Impacted cerumen, bilateral ; Note: Date Diagnosed : 12/06/2014 4:09 PM (H61.23) RENÉ HAINES MD [address] [place] [address], [facility] [place], [address] , [facility] - [facility] 5 15:26:33 Difficult y speaking Active 2014 Hoarsenes s; Note: Date Diagnosed : 5 5:56 PM (784.49) Hoarsen ess; Note: Date Diagnosed : 09/21/2014 4:40 PM (784.49) ; Start Date : 5 Not Available [facility] 4 02:53:51 Dysphonia 86132410 Active 2014 Hoarsenes s; Note: Date Diagnosed : 5 8:52 AM (R49.0) Not Available [facility] 4 02:53:51 Otalgia of left ear 0601229177 Active 2019 Otalgia, left ear; Note: Date Diagnosed : 0 3:36 PM (H92.02) Not Available [facility] 4 02:53:50 Bilateral temporoma ndibular joint pain 08610627541 073850 Active 2019 Arthralgi a of bilateral temporoma ndibular joint; Note: Date Diagnosed : 0 3:37 PM (M26.623) Not Available [facility] 4 02:53:49 Xerostomi a 27654985 Active 2021 Dry mouth, unspecifi ed; Note: Date Diagnosed : 02/04/2022 4:48 PM (R68.2) Not Available [facility] 4 02:53:48 Essential hypertens ion 24232691 Active 2021 Essential (primary) hypertens ion; Note: Date Diagnosed : 02/04/2022 4:48 PM (I10) Not Available [facility] 4 02:53:47 Disorder of right Eustachia n tube 00998756267 88763 Active 2022 Other specified disorders of Eustachia n tube, right ear; Note: Date Diagnosed : 07/01/2022 1:17 PM (H69.81) Not Available [facility] 4 02:53:48 Diffuse otitis externa 77857983 Active 2023 Diffuse otitis externa, left ear; Note: Date Diagnosed : 06/30/2023 4:37 PM (H60.312) Not Available [facility] 4 02:53:50 Impacted cerumen in left ear 66338009870 40787 Active 2023 RENÉ HAINES MD [address] [facility],[place] [address], [place], [address] , [facility] 4 16:48:31 Impacted cerumen in right ear 38245081180 08689 Active 2023 RENÉ HAINES MD [address] [facility],[place] [address], [place], [address] , [facility] - [facility] [place] 4 16:48:31 Otorrhea of left ear 76034515919 Active 2023 RENÉ HAINES MD [address] [facility],[place] [address], [place], [place], [address] , [facility] - [facility] 4 16:49:07 Chronic mycotic otitis externa 381034015 Active 2023 RENÉ HAINES MD [address] [facility],[place] [address], [place], [place], [address] , [facility] - [facility] 4 08:57:31 Acute infective otitis externa 241326178 Active 2023 RENÉ HAINES MD [address] [facility],[place] [address], [place], [place], [address] , [facility] - [facility] 4 09:02:25 Cervical lymphaden opathy 862882976 Active 2023 RENÉ HAINES MD [address] [facility],[place] [address], [place], [place], [address] , [facility] - [facility] 4 09:03:20 Candidal otitis externa 74839687 Active 2023 RENÉ HAINES MD [address] [facility],[place] [address], [place], [address] , [facility] - [facility] 4 16:49:29 Dermal mycosis 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 2023 RENÉ HAINES MD [address] [facility],[place] [address], [place], [address] , [facility] - [facility] 4 16:49:29 Tinnitus of right ear 53421933229 08 Active 2023 RENÉ HAINES MD [address] [facility],[place] [address], [place], [address] , [place] [facility] 5 15:26:33 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 35842291136 71249 Active 2024 RENÉ HAINES MD [address] [facility],[place] [address], [place], [address] , [place] [facility] 5 15:27:22 Sensorine ural hearing loss of bilateral ears 262993940 Active 2024 MAXI LAINEZ [address] [facility],[place] [address], [place], [address] , [place] [facility] 5 15:47:05 Sensorine ural hearing loss in right ear 56175594585 100 Active 2024 RENÉ HAINES MD [address] [place] [address],[place] [address], [place], [address] , [place] [facility] 5 17:10:01 Chronic eczema of external auditory canal 150380561 Active 2024 RENÉ HAINES MD [address] [place] [address],[place] [address], [place], [address] , [facility] - [facility] 5 15:37:47 Dysfuncti on of eustachia n tube 60299413 Active 2024 RENÉ HAINES MD [address] [facility],[place] [address], [place], [address] , [facility] - [facility] 5 15:37:55 Problem Notes None recorded. Procedures Surgical History Date Name Laterality Status Provider Name and Address Organization Details Recorded Time Comp Audio with Tymps - 53544 & 80439 completed RENÉ HAINES MD [address] [facility],[place] [address], [place], [address], [place] [facility] 12/12/2024 15:26:38 Cerumen removal with microscope bilateral completed RENÉ HAINES MD [address],[place], [place], [address], [place] [facility] 12/12/2024 15:26:38 5 Comp Audio with Tymps - 49701 & 92919 completed RENÉ HAINES MD [address], [place], [address], [place] [facility] 11/22/2024 15:37:25 5 Cerumen removal with microscope bilateral completed RENÉ HAINES MD [address] [facility] [address], [place], [address], [place] [facility] 11/22/2024 15:37:25 5 Comp Audio with Tymps - 76270 & 12258 completed RENÉ HAINES MD [address] [facility],[address], [address], [place] [facility] 10/24/2024 16:43:00 5 Cerumen removal with microscope bilateral completed RENÉ HAINES MD [address] [facility],[address], [address], [place] [facility] 10/24/2024 16:43:00 5 Comp Audio with Tymps - 34677 & 46702 completed RENÉ HAINES MD [address] [facility],[address], [address], [place] [facility] 09/28/2024 16:20:07 5 Cerumen removal with microscope bilateral completed RENÉ HAINES MD [address] [facility],[address], [address], [place] [facility] 09/28/2024 16:20:07 5 Air & Speech Audio with Tymps - 28699, 51638 & 41421 completed MAXI SMITH [address],[facility] [address], [place], [address], [place] [facility] 09/28/2024 15:39:12 5 Comp Audio with Tymps - 88952 & 19089 completed RENÉ HAINES MD [address] [place] [address] [place] [address], [address], [place] [facility] 08/17/2024 13:42:23 5 Cerumen removal with microscope bilateral completed RENÉ HAINES MD [address],[place] [address] [place] [address], [address], [place] [facility] 08/17/2024 13:42:23 5 Comp Audio with Tymps - 93389 & 25633 completed RENÉ HAINES MD [address] [facility],[address], [address], [place] [facility] 07/25/2024 16:12:53 5 Cerumen removal with microscope bilateral completed RENÉ HAINES MD [address] [facility],[address], [address], [place] [facility] 07/25/2024 16:12:53 5 Comp Audio with Tymps - 94634 & 09400 completed RENÉ HAINES MD [address] [facility],[address], [address], [place] [facility] 06/27/2024 16:37:03 5 Cerumen removal with microscope bilateral completed RENÉ HAINES MD [address] [facility],[address], [address], [place] [facility] 06/27/2024 16:37:03 5 Comp Audio with Tymps - 51972 & 65352 completed RENÉ HAINES MD [address] [facility],[place] [address] [place] [address], [address], [place] [facility] 04/25/2024 16:52:27 5 Cerumen removal with microscope bilateral completed RENÉ HAINES MD [address] [place] [address] [place] [address], [address], [place] [facility] 04/25/2024 16:52:27 5 Comp Audio with Tymps - 16801 & 94518 completed MAXI LAINEZ [address],[place] [address] [place] [address], [address], [place] [facility] 03/22/2024 15:46:54 5 Cerumen removal with microscope bilateral completed RENÉ HAINES MD [address],[place] [address] [place] [address], [address], [place] [facility] 03/22/2024 15:27:34 4 Cerumen removal with microscope bilateral completed RENÉ HAINES MD [address],[place] [address] [place] [address], [address], [place] [facility] 01/25/2024 17:06:33 4 Cerumen removal with microscope bilateral completed RENÉ HAINES MD [address] [facility] [address], [address], [place] [facility] 12/21/2023 16:34:46 4 Cerumen removal with microscope bilateral completed RENÉ HAINES MD [address],[place] [address] [place] [address], [address], [place] [facility] 11/23/2023 17:25:30 4 Cerumen removal with microscope bilateral completed RENÉ HAINES MD [address],[place] [address] [place] [address], [address], [place] [facility] 10/21/2023 09:04:53 4 Cerumen removal with microscope bilateral completed RENÉ HAINES MD [address],[place] [address] [place] [address], [address], [place] [facility] 08/10/2023 16:48:39 Imaging Results None recorded. Procedure Notes None recorded. Medical Equipment None Reported. Allergies Allergen ID Allergen Name Allergen Category Reaction Reaction Severity Criticality Documentation Date Start Date Code Code System Note Provider Name and Address Organization Details Recorded Time 656365 amoxicill in medicatio n other Not available Not available 07/13/2023 723 RxNorm React ion: unkno wn, unspe cifie d;; Not Available [facility] 4 01:14:43 Medications Name Sig Start Date Stop Date Status Note LastModified by Organization Details LastModified Time budesonid e 32 mcg/actua tion nasal spray 01/17 completed Medicati on ID: 8960 Dur ation Value: 30 Reason: () Brand Name: angel ames Send Method: E-Prescr ibed Sub s Allowed: subs OK Speci al Instruct ion: USE 2 SPRAYS IN EACH NOSTRIL TWICE A DAY Medi cationGe nericNam e: budesoni de Not Available Not Available Not Available ketoconaz [...] 1 TABLET DAILY FOR 4 DAYS [facility]: azithrom ycin Not Available Not Available [...] mg tablet 03/22 completed Medicati on ID: [id number] D uration Value: 12 Brand Name: sildenaf il Send Method: E-Prescr ibed Sub s Allowed: subs OK Speci al Instruct ion: TAKE HALF (1/2) OF [...] mg tablet 2018 active Medicati on ID: [id number] D uration Value: 15 Brand Name: zolpidem [...] a day 06/24 completed Medicati on ID: [id number] D uration Value: 30 Prescri bed By Name: Amado Lane MD Brand Name: Zyrtec S end Method: E-Prescr ibed Sub s Allowed: subs OK Medic ationGen ericName : Zyrtec Not Available Not Available Not Available EpiPen 2-Maximo 0.3 mg/0.3 mL injection , auto-inje ctor 1 pen injector intramus cularly 2014 active Medicati on ID: [id number] D uration Value: 1 Prescri bed By Name: Amado Lane MD Brand Name: EpiPen 2-Maximo Se nd Method: E-Prescr ibed Sub s Allowed: subs OK Medic ationGen ericName : EpiPen 2-Maximo Not Available Not Available Not Available Lotemax 0.5 % eye gel drops 01/17 completed Medicati on ID: [id number] D uration Value: 30 Reason: () Brand [...] and Address Organization Details Last Updated DateTime 08/17/2024 170.18 cm 27.4 kg/m2 80464.66 g Jignesh Wetzel [place] - [facility] 08/17/2024 13:24:00 Date Recorded Body height Provider Name an d Address Organization Details Last Updated DateTime 10/24/2024 170.18 cm DOLORES CARRILLOPeter [place] [facility] 10/24/2024 15:35:37 Date Recorded Body height Body mass index (BMI) Body weight Provider Name and Address Organization Details Last Updated DateTime 11/22/2024 170.18 cm 27.4 kg/m2 90730.66 g Jignesh Wetzel [place] - [facility] 11/22/2024 15:11:58 Date Recorded Body height Body mass index (BMI) Body weight Systolic And Diastolic Provider Name and Address Organization Details Last Updated DateTime 12/12/2024 170.18 cm 27.4 kg/m2 02760.66 g 130/79 mm[Hg] Jignesh Wetzel [place] - [facility] 12/12/2024 15:15:30 Social History None recorded. Functional Status None recorded. Mental Status None recorded. Family History Nothing Reported. Medical History No medical history recorded. Past Encounters Encounter ID Performer Location Encounter Start Date Encounter Closed Date Diagnosis/Indication Diagnosis SNOMED-CT Code Diagnosis ICD10 Code Diagnosis IMO Codes Diagnosis Note [id number] RENÉ HAINES MD [facility] [address] [address] 08/10/2023 16:05:56 08/10/2023 16:12:36 Impacted cerumen of bilateral ears 6502086301 718449 H61.23 Otorrhea of left ear 194 5789829 115824 H92.12 left otorrhea has resolved [id number] RENÉ HAINES MD [facility] [address] [address] 10/21/2023 08:26:21 10/21/2023 09:06:10 Chronic mycotic otitis externa 430695534 H60.399 see below Acute infe ctive otitis externa 696729474 H60.399 He has otitis externa AU. I will treat with drops and keep routine debridemen t appointmen ts. I discussed water precaution s and keeping ear buds out. Cervical lymphadenopathy 509719038 R59.0 1cm noted in left level V. HE will f/u in 4 weeks for a recheck and bring his US radiology report. Likely reactive. Impacted c erumen of bilateral ears 5541561170 174298 H61.23 Recurrent Cerumen Impactions : Ears were meticulous ly cleaned bilaterall y today with a curette and suction. The patient tolerated this well and will follow up for repeat debridemen t per routine. [id number] RENÉ HAINES MD [facility] [address] [address] 11/23/2023 16:03:42 11/23/2023 16:56:49 Chronic mycotic otitis externa 748806197 H60.399 see below Dermal mycosis 45737297 B36.9 see below Candidal o titis externa 80955496 B37.84 Will treat for fungal OE. He has f/u next month to recheck. Impacted c erumen of bilateral ears 8215732715 133366 H61.23 Recurrent Cerumen Impactions : Ears were meticulous ly cleaned bilaterall y today with a curette and suction. The patient tolerated this well and will follow up for repeat debridemen t per routine. [id number] RENÉ HAINES MD [facility] [address] [address] 12/21/2023 16:12:06 12/21/2023 16:37:27 Chronic mycotic otitis externa 727729978 H60.399 improved. Impacted c erumen of bilateral ears 7502020036 141237 H61.23 Recurrent Cerumen Impactions : Ears were meticulous ly cleaned bilaterall y today with a curette and suction. The patient tolerated this well and will follow up for repeat debridemen t per routine. [id number] RENÉ HAINES MD [facility] [address] [address] 01/25/2024 15:53:37 01/25/2024 17:00:16 Impacted cerumen of bilateral ears 4862381803 327204 H61.23 Recurrent Cerumen Impactions : Ears were meticulous ly cleaned bilaterall y today with a curette and suction. The patient tolerated this well and will follow up for repeat debridemen t per routine. Xerostomia 73838603 K11. 7 agree with trying to wean off zyrtec. I offered laryngosco py but he deferred today. [id number] RENÉ HAINES MD [facility] [address] [address] 02/24/2024 08:25:40 02/24/2024 09:15:27 Impacted cerumen of bilateral ears 4404883688 813339 H61.23 Recurrent Cerumen Impactions : Ears were meticulous ly cleaned bilaterall y today with a curette and suction. The patient tolerated this well and will follow up for repeat debridemen t per routine. Tinnitus of right ear 48 69429248 108 H93.11 No obvious effusion on exam. Drum was mobile. I recommend autoinsuff lation. I recommend an audiogram but there was not availabili ty today so we will do a hearing test first at the next visit. [id number] RENÉ HAINES MD [facility] [address] [address] 03/22/2024 14:58:36 03/22/2024 16:22:05 Impacted cerumen of bilateral ears 7792698015 553390 H61.23 Recurrent Cerumen Impactions : Ears were meticulous ly cleaned bilaterall y today with a curette and suction. The patient tolerated this well and will follow up for repeat debridemen t per routine. Hyperacusi s of right ear 6647328481 971656 H93.231 I discussed wearing an ear plug when bothersome Sensorineu ral hearing loss of bilateral ears 842145971 H90.3 Audiologic al evaluation results: Right ear: Mild rising to normal sloping to moderately -severe sensorineu ral hearing loss with excellent word recognitio n. Left ear: Normal sloping to mild sensorineu ral hearing loss with excellent word recognitio n. Tympanomet ry: Right Ear:Type A Left Ear:Type A Sensorineu ral hearing loss in right ear 9762029729 9100 H90.A21 Given the asymmetric hearing loss I recommend an MRI IAC with contrast to evaluate for retrocochl ear pathology. We will review results when complete. Tinnitus of right ear 48 99401543 108 H93.11 Ear exam was normal. Audiogram was reviewed. We discussed the associatio n between sensorineu ral hearing loss and tinnitus. We discussed masking for tinnitus. He's quite distressed about his hearing loss and tinnitus. I spent significan t time counsellin g him on the above. i discussed the [employer] eliza as well. [id number] RENÉ HAINES MD [facility] [address] [address] 04/25/2024 15:31:07 04/25/2024 16:16:15 Impacted cerumen of bilateral ears 4117129911 846788 H61.23 Recurrent Cerumen Impactions : Ears were meticulous ly cleaned bilaterall y today with a curette and suction. The patient tolerated this well and will follow up for repeat debridemen t per routine. Hyperacusi s of right ear 5854858430 232408 H93.231 he is slightly less bothered at this time. Sensorineu ral hearing loss in right ear 6288678812 9100 H90.A21 I gave reassuranc e there are no tumors AD. Tinnitus of right ear 48 46963815 108 H93.11 Less bothersome . Will observe. [id number] RENÉ HAINES MD [facility] [address] [place] [address] 06/27/2024 16:15:00 06/27/2024 16:36:34 Impacted cerumen of bilateral ears 0830386702 696268 H61.23 Recurrent Cerumen Impactions : Ears were meticulous ly cleaned bilaterall y today with a curette and suction. The patient tolerated this well and will follow up for repeat debridemen t per routine. Hyperacusi s of right ear 0266056432 459584 H93.231 he is slightly less bothered at this time. Sensorineu ral hearing loss in right ear 6376309993 9100 H90.A21 I gave reassuranc e there are no tumors AD. Tinnitus of right ear 48 41397871 108 H93.11 Less bothersome . Will observe. [id number] RENÉ HAINES MD [facility] [address] [address] 07/25/2024 15:23:23 07/25/2024 16:25:55 Impacted cerumen of bilateral ears 1099496192 276721 H61.23 Recurrent Cerumen Impactions : Ears were meticulous ly cleaned bilaterall y today with a curette and suction. The patient tolerated this well and will follow up for repeat debridemen t per routine. Sensorineu ral hearing loss in right ear 3221028642 9100 H90.A21 I gave reassuranc e there are no tumors AD. Tinnitus of right ear 48 98656638 108 H93.11 Less bothersome . Will observe. [id number] RENÉ HAINES MD [facility] on [address] [place] [address] 08/17/2024 13:19:12 08/17/2024 13:49:39 Impacted cerumen of bilateral ears 5847536914 495396 H61.23 Recurrent Cerumen Impactions : Ears were meticulous ly cleaned bilaterall y today with a curette and suction. The patient tolerated this well and will follow up for repeat debridemen t per routine. Sensorineu ral hearing loss in right ear 1611119039 9100 H90.A21 I gave reassuranc e there are no tumors AD. Tinnitus of right ear 48 81883621 108 H93.11 Less bothersome . Will observe. [id number] RENÉ HAINES MD [facility] [address] [address] 09/28/2024 15:02:24 09/28/2024 16:59:28 Sensorineural hearing loss of bilateral ears 047781228 H90.3 Audiologic al evaluation results: Right ear:Mild rising to normal sloping to moderately -severe sensorineu ral hearing loss with excellent word recognitio n.Left ear:Normal sloping to mild sensorineu ral hearing loss with excellent word recognitio n.Tympanom etry:Right Ear:Type ALeft Ear:Type A He is pleased with his improvemen t. He is not back to baseline but he is much less bothered by his tinnitus and he seems to function well despite his hearing loss. Impacted c erumen of bilateral ears 2806865880 361979 H61.23 Recurrent Cerumen Impactions : Ears were meticulous ly cleaned bilaterall y today with a curette and suction. The patient tolerated this well and will follow up for repeat debridemen t per routine. Tinnitus of right ear 48 06954906 108 H93.11 Less bothersome . Will observe. [id number] RENÉ HAINES MD [facility] [address] [address] 10/24/2024 15:31:24 10/24/2024 16:00:51 Impacted cerumen of bilateral ears 4695936837 009673 H61.23 Recurrent Cerumen Impactions : Ears were meticulous ly cleaned bilaterall y today with a curette and suction. The patient tolerated this well and will follow up for repeat debridemen t per routine. Tinnitus of right ear 48 [id number] 108 H93.11 Less bothersome . Will observe. [id number] RENÉ HAINES MD [facility] of [address] [address] 11/22/2024 15:07:03 11/22/2024 15:41:15 Impacted cerumen of bilateral ears [id number] 448372 H61.23 Recurrent Cerumen Impactions : Ears were meticulous ly cleaned bilaterall y today with a curette and suction. The patient tolerated this well and will follow up for repeat debridemen t per routine. Tinnitus of right ear 48 [id number] 108 H93.11 Less bothersome . Will observe. Chronic ec zema of external auditory canal 816576358 H60.8X3 [id number] He had some very scant purulent drainage on the right. I recommend treating with drops. He was not interested in taking a steroid drops so we will use ofloxacin which he felt worked well for him in the past. He will keep his follow-up for repeat debridemen t. [id number] RENÉ HAINES MD [facility] of [address] [place] [address] 12/12/2024 15:06:41 12/12/2024 15:24:23 Impacted cerumen of bilateral ears [id number] 475367 H61.23 Recurrent Cerumen Impactions : Ears were meticulous ly cleaned bilaterall y today with a curette and suction. The patient tolerated this well and will follow up for repeat debridemen t per routine. Tinnitus of right ear 48 27760918 108 H93.11 Less bothersome . Will observe. Chronic ec zema of external auditory canal 549072787 H60.8X3 [id number] No purulence today. I sent drops last time he didn't use. He will hold on to them for the future but no sign of infection today. Health Concerns Section Related Observation LastModified by Organization Detai ls LastModified Time None Recorded Concern Status LastModified by Organization Details LastModified Time None Recorded Advance Directives Directive None Recorded Payers Insurance Date Sequence Insurance Name Policy Number Policy Dunn Covered Member ID Dunn Member ID Guarantor Name 12/09/2024 1 [facility] [id number] Bulmaro Okeefe [id number] Bulmaro Okeefe Notes Date Note Type Note Provider Name and Address Organization Details Recorded Time 08/17/2024 text/html ROS as noted in the HPI He presents for asymmetric hearing loss AD and cerumen impaction. Prior MRI was negative for retrocochlear pathology. He requires frequent debridements of his ears due to cerumen accumulation. RENÉ HAINES MD [address] [place] [address], [address], [facility] 08/17/2024 13:49:15 09/28/2024 text/html ROS as noted in the HPI He presents for asymmetric hearing loss AD and cerumen impaction. Prior MRI was negative for retrocochlear pathology. He requires frequent debridements of his ears due to cerumen accumulation. Audio today showed slight improvement in low frequency hearing AD compared to March. RENÉ HAINES MD [address] [place] [address], [address], [facility] 09/28/2024 16:21:28 10/24/2024 text/html ROS as noted in the HPI He presents for asymmetric hearing loss AD and cerumen impaction. Prior MRI was negative for retrocochlear pathology. He requires frequent debridements of his ears due to cerumen accumulation. RENÉ HAINES MD [address] [facility],[address], [address], [facility] - [facility] 10/24/2024 16:43:45 11/22/2024 text/html ROS as noted in the HPI He presents for asymmetric hearing loss AD and cerumen impaction. Prior MRI was negative for retrocochlear pathology. He requires frequent debridements of his ears due to cerumen accumulation. RENÉ HAINES MD [address] [facility],[address], [address], [facility] - [facility] 11/22/2024 15:43:00 12/12/2024 text/html ROS as noted in the HPI He presents for asymmetric hearing loss AD and cerumen impaction. Prior MRI was negative for retrocochlear pathology. He requires frequent debridements of his ears due to cerumen accumulation. RENÉ HAINES MD [address] [facility],[address], [address], [facility] - [facility] 12/12/2024 15:28:11
--- OUTSIDE RECORDS SUMMARY | 2025-01-13 13:06 | XMS_ITS | Continuity of Care Document ---
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 [...] None recorded. Imaging None recorded. Medication Orders None recorded. Patient TargetsNo targets recorded. Patient InstructionsNo instructions recorded. Reason for Referral None Reported. 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; Note: Date Diagnosed : 09/04/2014 11:08 AM (478.5) Not Available [facility] 4 02:53:47 Allergic rhinitis caused by pollen 68705389 Active 2014 Allergic rhinitis due to pollen; Note: Date Diagnosed : 12/06/2014 4:09 PM (J30.1) Not Available [facility] 4 02:53:51 Uncomplic ated asthma 599504062 Active 2014 Unspecifi ed asthma, uncomplic ated; Note: Date Diagnosed : 12/06/2014 4:09 PM (J45.909) Not Available [facility] 4 02:53:45 Impacted cerumen of bilateral ears 09784131055 01060 Active 2014 Impacted cerumen, bilateral ; Note: Date Diagnosed : 12/06/2014 4:09 PM (H61.23) RENÉ HAINES MD [address] [place] [address], [place], [address] , [facility] - [facility] 5 15:26:33 Difficult y speaking Active 2014 Hoarsenes s; Note: Date Diagnosed : 5 5:56 PM (784.49) Hoarsen ess; Note: Date Diagnosed : 09/21/2014 4:40 PM (784.49) ; Start Date : 5 Not Available [facility] 4 02:53:51 Dysphonia 15180704 Active 2014 Ho[facility]enes [facility]; Note: Date Diagnosed : 5 8:52 AM (R49.0) Not Available [facility] 4 02:53:51 Otalgia of left ear 5235465064 Active 2019 Otalgia, left ear; Note: Date Diagnosed : 0 3:36 PM (H92.02) Not Available [facility] 4 02:53:50 Bilateral temporoma ndibular joint pain 23497429248 733426 Active 2019 Arthralgi a of bilateral temporoma ndibular joint; Note: Date Diagnosed : 0 3:37 PM (M26.623) Not Available [facility] 4 02:53:49 Xerostomi a 11870402 Active 2021 Dry mouth, unspecifi ed; Note: Date Diagnosed : 02/04/2022 4:48 PM (R68.2) Not Available [facility] 4 02:53:48 Essential hypertens ion 50614573 Active 2021 Essential (primary) hypertens ion; Note: Date Diagnosed : 02/04/2022 4:48 PM (I10) Not Available [facility] 4 02:53:47 Disorder of right Eustachia n tube 29385110880 Active 2022 Other specified disorders of Eustachia n tube, right ear; Note: Date Diagnosed : 07/01/2022 1:17 PM (H69.81) Not Available [facility] 4 02:53:48 Diffuse otitis externa 34187723 Active 2023 Diffuse otitis externa, left ear; Note: Date Diagnosed : 06/30/2023 4:37 PM (H60.312) Not Available [facility] 4 02:53:50 Impacted cerumen in left ear 44253954244 87564 Active 2023 RENÉ HAINES MD [address] [facility],[address], [place], [address] , [place] - [facility] 4 16:48:31 Impacted cerumen in right ear 47637693240 64322 Active 2023 RENÉ HAINES MD [address] [place] [address],[address], [place], [address] , [place] - [facility] 4 16:48:31 Otorrhea of left ear 37544059792 29324 Active 2023 RENÉ HAINES MD [address] [facility],[place] [address], [place], [address] , [facility] - [facility] [place] 4 16:49:07 Chronic mycotic otitis externa 735075740 Active 2023 RENÉ HAINES MD [address] [place] [address],[place] [address], [place], [address] , [facility] - [facility] 4 08:57:31 Acute infective otitis externa 724827493 Active 2023 RENÉ HAINES MD [address] [place] [address],[place] [address], [place], [address] , [facility] - [facility] 4 09:02:25 Cervical lymphaden opathy 448958579 Active 2023 RENÉ HAINES MD [address] [place] [address],[place] [address], [place], [address] , [facility] - [facility] 4 09:03:20 Candidal otitis externa 25869582 Active 2023 RENÉ HAINES MD [address] [place] [address],[place] [address], [place], [address] , [facility] - [facility] 4 16:49:29 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 RENÉ HAINES MD [address] [place] [address],[place] [address], [place], [address] , [facility] - [facility] 4 16:49:29 Tinnitus of right ear 52233659676 08 Active 2023 RENÉ HAINES MD [address] [place] [address],[place] [address], [place], [address] , [facility] - [facility] 5 15:26:33 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 45550331481 45176 Active 2024 RENÉ HAINES MD [address] [facility],[place] [address], [place], [address] , [place] - [facility] 5 15:27:22 Sensorine ural hearing loss of bilateral ears 327419335 Active 2024 MAXI LAINEZ [address] [facility],[place] [address], [facility] [place], [address] , [place] - [facility] 5 15:47:05 Sensorine ural hearing loss in right ear 48525397391 100 Active 2024 RENÉ HAINES MD [address] [facility],[place] [address], [facility] [place], [address] , [place] - [facility] 5 17:10:01 Chronic eczema of external auditory canal 333589811 Active 2024 RENÉ HAINES MD [address] [facility],[place] [address], [facility] [place], [address] , [place] - [facility] 5 15:37:47 Dysfuncti on of eustachia n tube 39245482 Active 2024 RENÉ HAINES MD [address] [facility],[place] [address], [facility] [place], [address] , [place] - [facility] 15:37:55 Problem Notes None recorded. Procedures Surgical History Date Name Laterality Status Provider Name and Address Organization Details Recorded Time Comp Audio with Tymps - 25926 & 48339 completed RENÉ HAINES MD [address] [facility],[address], [address], [place] - [facility] 12/12/2024 15:26:38 Cerumen removal with microscope bilateral completed RENÉ HAINES MD [address] [place] [address],[place] [address], [place], [address], [place] [facility] 12/12/2024 15:26:38 Comp Audio with Tymps - 46950 & 82348 completed RENÉ HAINES MD [facility],[place] [address], [place], [address], [place] [facility] [place] 11/22/2024 15:37:25 09/24/202 5 Cerumen removal with microscope bilateral completed RENÉ HAINES MD [address] [facility],[address], [address], [place] - [facility] 11/22/2024 15:37:25 5 Comp Audio with Tymps - 14401 & 73659 completed RENÉ HAINES MD [facility],[place] [address] [place] [address], [address], [place] [facility] 10/24/2024 16:43:00 5 Cerumen removal with microscope bilateral completed RENÉ HAINES MD [facility],[address], [address], [place] [facility] 10/24/2024 16:43:00 5 Comp Audio with Tymps - 76158 & 34006 completed RENÉ HAINES MD [facility],[address], [address], [place] [facility] 09/28/2024 16:20:07 5 Cerumen removal with microscope bilateral completed RENÉ HAINES MD [facility],[address], [address], [place] [facility] 09/28/2024 16:20:07 5 Air & Speech Audio with Tymps - 27667, 54283 & 12539 completed MAXI SMITH [facility],[address], [address], [place] - [facility] 09/28/2024 15:39:12 5 Comp Audio with Tymps - 23716 & 04929 completed RENÉ HAINES MD [facility],[address], [address], [place] [facility] 08/17/2024 13:42:23 5 Cerumen removal with microscope bilateral completed RENÉ HAINES MD [address],[place] [address] [place] [address], [address], [place] [facility] 08/17/2024 13:42:23 5 Comp Audio with Tymps - 60168 & 90982 completed RENÉ HAINES MD [address],[address], [address], [place] [facility] 07/25/2024 16:12:53 5 Cerumen removal with microscope bilateral completed RENÉ HAINES MD [facility],[address], [address], [place] [facility] 07/25/2024 16:12:53 5 Comp Audio with Tymps - 43622 & 81672 completed RENÉ HAINES MD [facility],[address], [address], [place] [facility] 06/27/2024 16:37:03 5 Cerumen removal with microscope bilateral completed RENÉ HAINES MD 100 [facility],[address], [address], [place] [facility] 06/27/2024 16:37:03 5 Comp Audio with Tymps - 24972 & 26310 completed RENÉ HAINES MD 100 [facility],[address], [address], [place] [facility] 04/25/2024 16:52:27 5 Cerumen removal with microscope bilateral completed RENÉ HAINES MD 100 [facility],[address], [address], [place] [facility] 04/25/2024 16:52:27 5 Comp Audio with Tymps - 08056 & 72464 completed MAXI LAINEZ [facility],[address], [address], [place] [facility] 03/22/2024 15:46:54 5 Cerumen removal with microscope bilateral completed RENÉ HAINES MD [facility],[address], [address], [place] [facility] 03/22/2024 15:27:34 4 Cerumen removal with microscope bilateral completed RENÉ HAINES MD [address],[place] [address] [place] [address], [address], [place] [facility] 01/25/2024 17:06:33 4 Cerumen removal with microscope bilateral completed RENÉ HAINES MD [address],[place] [address] [place] [address], [address], [place] [facility] 12/21/2023 16:34:46 4 Cerumen removal with microscope bilateral completed RENÉ HAINES MD [address], [place], [address], [place] [facility] 11/23/2023 17:25:30 4 Cerumen removal with microscope bilateral completed RENÉ HAINES MD [address] [facility] [address],[place] [address] [place] [address], [address], [place] [facility] 10/21/2023 09:04:53 4 Cerumen removal with microscope bilateral completed RENÉ HAINES MD [facility],[address], [address], [place] [facility] 08/10/2023 16:48:39 Imaging Results None recorded. Procedure Notes None recorded. Medical Equipment None Reported. Allergies Allergen ID Allergen Name Allergen Category Reaction Reaction Severity Criticality Documentation Date Start Date Code Code System Note Provider Name and Address Organization Details Recorded Time 229811 amoxicill in medicatio n other Not available Not available 07/13/2023 723 RxNorm React ion: unkno wn, unspe cifie d;; Not Available [facility] 4 01:14:43 Medications Name Sig Start Date Stop Date Status Note LastModified by Organization Details LastModified Time budesonid e 32 mcg/actua tion nasal spray 01/17 completed Medicati on ID: 8960 Dur ation Value: 30 Reason: () Brand Name: budesoni de Send Method: E-Prescr ibed Sub s Allowed: [...] mg tablet 03/22 completed Medicati on ID: [id number] D uration Value: 12 Brand Name: sildenaf [...] mg tablet 2018 active Medicati on ID: [id number] D uration Value: 15 Brand Name: zolpidem [...] BETTER THEN USE 2-3 TIMES WEEKLY FOR EMRT NCE active Not Available Not Available No [...] a day 06/24 completed Medicati on ID: [id number] D uration Value: 30 Prescri bed By Name: Amado Lane MD Brand Name: Zyrtec S end Method: E-Prescr ibed Sub s Allowed: subs OK Medic ationGen ericName : Zyrtec Not Available Not Available Not Available EpiPen 2-Maximo 0.3 mg/0.3 mL injection , auto-inje ctor 1 pen injector intramus cularly 2014 active Medicati on ID: [id number] D uration Value: 1 Prescri bed By Name: Amado Lane MD Brand Name: EpiPen 2-Maximo Se nd Method: E-Prescr ibed Sub s Allowed: subs OK Medic ationGen ericName : EpiPen 2-Maximo Not Available Not Available Not Available Lotemax 0.5 % eye gel drops 01/17 completed Medicati on ID: [id number] D uration Value: 30 Reason: () Brand [...] Updated DateTime 12/12/2024 170.18 cm 27.4 kg/m2 15367.66 g 130/79 mm[Hg] Jignesh Wetzel [place] - [facility] 12/12/2024 15:15:30 Social History None recorded. Functional Status None recorded. Mental Status None recorded. Family History Nothing Reported. Medical History No medical history recorded. Past Encounters Encounter ID Performer Location Encounter Start Date Encounter Closed Date Diagnosis/Indication Diagnosis SNOMED-CT Code Diagnosis ICD10 Code Diagnosis IMO Codes Diagnosis Note [id number] RENÉ HAINES MD [facility] of [address] [address] 11/22/2024 15:07:03 11/22/2024 15:41:15 Impacted cerumen of bilateral ears 0013024067 924336 H61.23 Recurrent Cerumen Impactions : Ears were meticulous ly cleaned bilaterall y today with a curette and suction. The patient tolerated this well and will follow up for repeat debridemen t per routine. Tinnitus of right ear 48 69331494 108 H93.11 Less bothersome . Will observe. Chronic ec zema of external auditory canal 056008597 H60.8X3 90307513 He had some very scant purulent drainage on the right. I recommend treating with drops. He was not interested in taking a steroid drops so we will use ofloxacin which he felt worked well for him in the past. He will keep his follow-up for repeat debridemen t. [id number] RENÉ HAINES MD [facility] of [address] [address] 12/12/2024 15:06:41 12/12/2024 15:24:23 Impacted cerumen of bilateral ears 7501473106 471594 H61.23 Recurrent Cerumen Impactions : Ears were meticulous ly cleaned bilaterall y today with a curette and suction. The patient tolerated this well and will follow up for repeat debridemen t per routine. Tinnitus of right ear 48 70160065 108 H93.11 Less bothersome . Will observe. Chronic ec zema of external auditory canal 431191373 H60.8X3 86873231 No purulence today. I sent drops last [...] Member ID Dunn Member ID Guarantor Name 12/12/2024 1 [facility] [id number] Bulmaro Okeefe [id number] Bulmaro Okeefe Notes Date Note Type Note Provider Name and Address Organization Details Recorded Time 12/12/2024 text/html ROS as noted in the HPI He presents for asymmetric hearing loss AD and cerumen impaction. Prior MRI was negative for retrocochlear pathology. He requires frequent debridements of his ears due to cerumen accumulation. RENÉ HAINES MD [address] [place] [address], [place], [address], [facility] - [facility] 12/12/2024 15:28:11
--- OUTSIDE RECORDS SUMMARY | 2025-01-13 13:06 | XMS_ITS | Continuity of Care Document ---
Author Organization [place] [facility], [facility] Address [address] [place] [address] Care Team Providers Care Sales Representative Metals Name Role Phone SIFUENTES, NANNETTE Primary Care Provider Assessment No assessment [...] Address Organization Details Recorded Time Allergic rhinitis [id number] Active 2013 Allergic Rhinitis; [facility] Risk: low risk Note : Date Diagnosed : 4 3:59 PM (477.9) Not Available [facility] 4 02:53:46 Impacted cerumen 68063928 Active 2013 Impacted cerumen; CMS Risk: low risk Note : Date Diagnosed : 4 3:59 PM (380.4) Not Available [facility] 4 02:53:47 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; Note: Date Diagnosed : 09/04/2014 11:08 AM (478.5) Not Available [facility] 4 02:53:47 Allergic rhinitis caused by pollen 30645350 Active 2014 Allergic rhinitis due to pollen; Note: Date Diagnosed : 12/06/2014 4:09 PM (J30.1) Not Available [facility] 4 02:53:51 Uncomplic ated asthma 061297232 Active 2014 Unspecifi ed asthma, uncomplic ated; Note: Date Diagnosed : 12/06/2014 4:09 PM (J45.909) Not Available [facility] 4 02:53:45 Impacted cerumen of bilateral ears 98885916359 83203 Active 2014 Impacted cerumen, bilateral ; Note: Date Diagnosed : 12/06/2014 4:09 PM (H61.23) RENÉ HAINES MD [address] [place] [address], [facility] [place], [address] , [facility] - [facility] 5 15:26:33 Difficult y speaking Active 2014 Hoarsenes s; Note: Date Diagnosed : 5 5:56 PM (784.49) Hoarsen ess; Note: Date Diagnosed : 09/21/2014 4:40 PM (784.49) ; Start Date : 5 Not Available [facility] 4 02:53:51 Dysphonia 38823787 Active 2014 Hoarsenes s; Note: Date Diagnosed : 5 8:52 AM (R49.0) Not Available [facility] 4 02:53:51 Otalgia of left ear 2468545829 Active 2019 Otalgia, left ear; Note: Date Diagnosed : 0 3:36 PM (H92.02) Not Available [facility] 4 02:53:50 Bilateral temporoma ndibular joint pain 81586025144 673774 Active 2019 Arthralgi a of bilateral temporoma ndibular joint; Note: Date Diagnosed : 0 3:37 PM (M26.623) Not Available [facility] 4 02:53:49 Xerostomi a 21206871 Active 2021 Dry mouth, unspecifi ed; Note: Date Diagnosed : 02/04/2022 4:48 PM (R68.2) Not Available [facility] 4 02:53:48 Essential hypertens ion 36935052 Active 2021 Essential (primary) hypertens ion; Note: Date Diagnosed : 02/04/2022 4:48 PM (I10) Not Available [facility] 4 02:53:47 Disorder of right Eustachia n tube 63015801312 34098 Active 2022 Other specified disorders of Eustachia n tube, right ear; Note: Date Diagnosed : 07/01/2022 1:17 PM (H69.81) Not Available [facility] 4 02:53:48 Diffuse otitis externa 57091864 Active 2023 Diffuse otitis externa, left ear; Note: Date Diagnosed : 06/30/2023 4:37 PM (H60.312) Not Available [facility] 4 02:53:50 Impacted cerumen in left ear 46760335862 82223 Active 2023 RENÉ HAINES MD [address] [place] [address], [facility] [place], [address] , [facility] - [facility] 4 16:48:31 Impacted cerumen in right ear 31453586549 18868 Active 2023 RENÉ HAINES MD [address] [facility],[place] [address], [place], [address] , [facility] 4 16:48:31 Otorrhea of left ear 19506268930 07544 Active 2023 RENÉ HAINES MD [address] [facility],[place] [address], [place], [address] , [facility] - [facility] 4 16:49:07 Chronic mycotic otitis externa 073518710 Active 2023 RENÉ HAINES MD [address] [facility],[place] [address], [place], [place], [address] , [facility] - [facility] 4 08:57:31 Acute infective otitis externa 133966937 Active 2023 RENÉ HAINES MD [address] [place] [address],[place] [address], [place], [place], [address] , [facility] - [facility] 4 09:02:25 Cervical lymphaden opathy 182317314 Active 2023 RENÉ HAINES MD [address] [place] [address],[place] [address], [place], [place], [address] , [facility] - [facility] 4 09:03:20 Candidal otitis externa 28774957 Active 2023 RENÉ HAINES MD [address] [facility],[place] [address], [place], [place], [address] , [facility] - [facility] 4 16:49:29 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 2023 RENÉ HAINES MD [address] [facility],[place] [address], [place], [address] , [facility] - [facility] 4 16:49:29 Tinnitus of right ear 38613365345 08 Active 2023 RENÉ HAINES MD [address] [facility],[place] [address], [place], [address] , [facility] - [facility] 15:26:33 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 36068107052 64585 Active 2024 RENÉ HAINES MD [address] [facility],[place] [address], [place], [address] , [place] [facility] 5 15:27:22 Sensorine ural hearing loss of bilateral ears 184224533 Active 2024 MAXI LAINEZ [address] [facility],[place] [address], [place], [place], [address] , [place] [facility] 5 15:47:05 Sensorine ural hearing loss in right ear 99843052153 100 Active 2024 RENÉ HAINES MD [address] [facility],[place] [address], [place], [address] , [place] [facility] 5 17:10:01 Chronic eczema of external auditory canal 806324658 Active 2024 RENÉ HAINES MD [address] [facility],[place] [address], [place], [address] , [place] [facility] 5 15:37:47 Dysfuncti on of eustachia n tube 31973622 Active 2024 RENÉ HAINES MD [address] [facility],[place] [address], [place], [address] , [place] [facility] 5 15:37:55 Problem Notes None recorded. Procedures Surgical History Date Name Laterality Status Provider Name and Address Organization Details Recorded Time Comp Audio with Tymps - 26516 & 11614 completed RENÉ HAINES MD [address] [facility] [place] [address], [place], [address], [place] [facility] 12/12/2024 15:26:38 Cerumen removal with microscope bilateral completed RENÉ HAINES MD [address] [facility] [place] [facility], [place], [address], [place] [facility] 12/12/2024 15:26:38 Comp Audio with Tymps - 98252 & 67121 completed RENÉ HAINES MD [address] [place],[address], [address], [place] [facility] 11/22/2024 15:37:25 5 Cerumen removal with microscope bilateral completed RENÉ HAINES MD [address] [facility] [place],[place] [address] [place] [address], [address], [place] [facility] 11/22/2024 15:37:25 5 Comp Audio with Tymps - 60172 & 65927 completed RENÉ HAINES MD [address] [facility] [place],[address], [address], [place] [facility] 10/24/2024 16:43:00 5 Cerumen removal with microscope bilateral completed RENÉ HAINES MD [address] [facility] [place],[address], [address], [place] [facility] 10/24/2024 16:43:00 5 Comp Audio with Tymps - 32129 & 50090 completed RENÉ HAINES MD [address] [facility] [place],[address], [address], [place] [facility] 09/28/2024 16:20:07 5 Cerumen removal with microscope bilateral completed RENÉ HAINES MD [address] [facility] [place],[address], [address], [place] [facility] 09/28/2024 16:20:07 5 Air & Speech Audio with Tymps - 44173, 62060 & 12022 completed MAXI SMITH [address] [facility] [place],[address], [address], [place] [facility] 09/28/2024 15:39:12 5 Comp Audio with Tymps - 49831 & 68472 completed RENÉ HAINES MD [address] [facility] [place],[address], [address], [place] [facility] 08/17/2024 13:42:23 5 Cerumen removal with microscope bilateral completed RENÉ HAINES MD [address] [place],[address], [address], [place] [facility] 08/17/2024 13:42:23 5 Comp Audio with Tymps - 19977 & 77243 completed RENÉ HAINES MD [address] [facility] [place],[address], [address], [place] [facility] 07/25/2024 16:12:53 5 Cerumen removal with microscope bilateral completed RENÉ HAINES MD [address] [facility] [place],[address], [address], [place] [facility] 07/25/2024 16:12:53 5 Comp Audio with Tymps - 92167 & 47055 completed RENÉ HAINES MD [address] [facility] [place],[address], [address], [place] [facility] 06/27/2024 16:37:03 5 Cerumen removal with microscope bilateral completed RENÉ HAINES MD [address] [facility] [place],[address], [address], [place] [facility] 06/27/2024 16:37:03 5 Comp Audio with Tymps - 38631 & 78243 completed RENÉ HAINES MD [address] [facility] [place],[address], [address], [place] [facility] 04/25/2024 16:52:27 5 Cerumen removal with microscope bilateral completed RENÉ HAINES MD [address] [facility] [place],[address], [address], [place] [facility] 04/25/2024 16:52:27 5 Comp Audio with Tymps - 33633 & 39565 completed MAXI LAINEZ [address], [address], [place] [facility] 03/22/2024 15:46:54 5 Cerumen removal with microscope bilateral completed RENÉ HAINES MD [address],[place] [address], [place], [address], [place] [facility] 03/22/2024 15:27:34 4 Cerumen removal with microscope bilateral completed RENÉ HAINES MD [address],[place], [place], [address], [place] [facility] 01/25/2024 17:06:33 4 Cerumen removal with microscope bilateral completed RENÉ HAINES MD [address],[place], [place], [address], [place] [facility] 12/21/2023 16:34:46 4 Cerumen removal with microscope bilateral completed RENÉ HAINES MD [address],[place] [address] [place] [address], [address], [place] [facility] 11/23/2023 17:25:30 4 Cerumen removal with microscope bilateral completed RENÉ HAINES MD [address],[place] [address] [place] [address], [address], [place] [facility] 10/21/2023 09:04:53 4 Cerumen removal with microscope bilateral completed RENÉ HAINES MD [address],[place] [address] [place] [address], [address], [place] [facility] 08/10/2023 16:48:39 Imaging Results None recorded. Procedure Notes None recorded. Medical Equipment None Reported. Allergies Allergen ID Allergen Name Allergen Category Reaction Reaction Severity Criticality Documentation Date Start Date Code Code System Note Provider Name and Address Organization Details Recorded Time [id number] amoxicill in medicatio n other Not available Not available 07/13/2023 723 RxNorm React ion: unkno wn, unspe cifie d;; Not Available [facility] 4 01:14:43 Medications Name Sig Start Date Stop Date Status Note LastModified by Organization Details LastModified Time budesonid e 32 mcg/actua tion nasal spray 01/17 completed Medicati on ID: 8960 Dur ation Value: 30 Reason: () Brand Name: angel ames Send Method: E-Prescr ibed Sub s Allowed: subs OK Speci al Instruct ion: USE 2 SPRAYS IN EACH NOSTRIL TWICE A DAY Medi Nathanael King e: angel ames Not Available Not [...] 1 TABLET DA[facility] azithrom y[facility] Not Available Not Available [...] mg tablet 03/22 completed Medicati on ID: [id number] D uration Value: 12 Brand Name: sildenaf [...] mg tablet 2018 active Medicati on ID: [id number] D uration Value: 15 Brand Name: zolpidem [...] a day 06/24 completed Medicati on ID: [id number] D uration Value: 30 Prescri bed By Name: Amado Lane MD Brand Name: Zyrtec S end Method: E-Prescr ibed Sub s Allowed: subs OK Medic ationGen ericName : Zyrtec Not Available Not Available Not Available EpiPen 2-Maximo 0.3 mg/0.3 mL injection , auto-inje ctor 1 pen injector intramus cularly 2014 active Medicati on ID: [id number] D uration Value: 1 Prescri bed By Name: Amado Lane MD Brand Name: EpiPen 2-Maximo Se nd Method: E-Prescr ibed Sub s Allowed: subs OK Medic ationGen ericName : EpiPen 2-Maximo Not Available Not Available Not Available Lotemax 0.5 % eye gel drops 01/17 completed Medicati on ID: [id number] D uration Value: 30 Reason: () Brand Name: Lotemax Send Method: E-Prescr ibed Sub s Allowed: subs OK Medic ationGen ericName : Lotemax Not Available Not Available Not Available Zoryve 0.3 % topical foam APPLY TOPICALL Y TO SCALP EVERY DAY active Not Available Not Available No t Available Vitals Date Recorded Body height Provider Name an d Address Organization Details Last Updated DateTime 10/24/2024 170.18 cm DOLORES CARRILLOI [place] [facility] 10/24/2024 15:35:37 Social History None recorded. Functional Status None recorded. Mental Status None recorded. Family History Nothing Reported. Medical History No medical history recorded. Past Encounters Encounter ID Performer Location Encounter Start Date Encounter Closed Date Diagnosis/Indication Diagnosis SNOMED-CT Code Diagnosis ICD10 Code Diagnosis IMO Codes Diagnosis Note [id number] RENÉ HAINES MD [facility] [address] [address] 09/28/2024 15:02:24 09/28/2024 16:59:28 Sensorineural hearing loss of bilateral ears 904208717 H90.3 Audiologic al evaluation results: Right ear:Mild [...] loss. Impacted c erumen of bilateral ears 2029533500 017670 H61.23 Recurrent Cerumen Impactions : Ears were meticulous ly cleaned bilaterall y today with a curette and suction. The patient tolerated this well and will follow up for repeat debridemen t per routine. Tinnitus of right ear 48 88361305 108 H93.11 Less bothersome . Will observe. [id number] RENÉ HAINES MD [facility] [address] [address] 10/24/2024 15:31:24 10/24/2024 16:00:51 Impacted cerumen of bilateral ears 5404232399 000056 H61.23 Recurrent Cerumen Impactions : Ears were meticulous ly cleaned bilaterall y today with a curette and suction. The patient tolerated this well and will follow up for repeat debridemen t per routine. Tinnitus of right ear 48 68280301 108 H93.11 Less bothersome . Will observe. Health Concerns Section Related Observation LastModified by Organization Detai ls LastModified Time None Recorded Concern Status LastModified by Organization Details LastModified Time None Recorded Payers Encounter Date Sequence Insurance Name Policy Number Policy Dunn Covered Member ID Dunn Member ID Guarantor Name 10/24/2024 1 [facility] [id number] 1 Bulmaro O[place]fe [id number] Bulmaro [place] Notes Date Note Type Note Provider Name and Address Organization Details Recorded Time 10/24/2024 text/html ROS as noted in the HPI He presents for asymmetric hearing loss AD and cerumen impaction. Prior MRI was negative for retrocochlear pathology. He requires frequent debridements of his ears due to cerumen accumulation. RENÉ HAINES MD [address] [place] [address], [address], [facility] - [facility] 10/24/2024 16:43:45
[2025-01-13 15:14] LABS: MANUAL DIFF FLAG NO
[2025-01-13 15:16] LABS: Hematocrit 40.0 % (42.0-52.0); Hemoglobin 13.7 g/dl (14.0-18.0); Imm Gran Abs Auto 0.01 X10*3/uL (0.00-0.03); Imm Gran Pct Auto 0.3 % (0.0-0.4); Lymphocytes Absolute Auto 1.0 X10*3/uL (1.2-4.9); Mean Corpuscular HGB Conc 34.3 g/dl (31.0-36.0); Mean Corpuscular Hemoglobin 29.1 pg (27.0-33.0); Mean Corpuscular Volume 85.1 fL (80.0-98.0); NRBC Abs Auto 0.000 X10*3/uL (0.0-0.012); NRBC Pct Auto 0.0 /100WBC (0.0-0.2); Platelet Count 224 X10*3/uL (160-400); Red Blood Count 4.70 X10*6/uL (4.60-5.80); White Blood Count 3.8 X10*3/uL (4.8-10.8)
[2025-01-13 15:27] LABS: Hemoglobin A1C 97.8875 umol/L
[2025-01-13 15:34] LABS: Alanine Aminotransferase 25 U/L (0-40); Albumin Level 4.6 g/dL (3.5-5.0); Alkaline Phosphatase 65 U/L (39-117); Anion Gap 11 (12-20); Aspartate Amino Transferase 28 U/L (5-37); Blood Urea Nitrogen 13 mg/dL (9-16); Calcium 9.3 mg/dL (8.4-10.2); Carbon Dioxide 32 mmol/L (22-29); Chloride 94 mmol/L (96-108); Cholesterol 167 mg/dL (<200); Estimated Glomerular Filt Rate > 60; HDL Cholesterol 60 mg/dL (>40); Potassium 3.5 mmol/L (3.3-5.1); Sodium 133 mmol/L (135-145); Total Protein 6.8 g/dL (6.5-8.0); Triglycerides 52 mg/dL (<150)
[2025-01-25 13:29] LABS: Metanephrine, Free Rand Ur 85 mcg/g cr (21-153); Normetanephrine, Free Rand Ur 169 mcg/g cr (108-524); Total Metanephrine, Free RU 254 mcg/g cr (149-603)
== END 2025-01-13 13:02 | disposition home or self-care (01) ==
LOC: HO.HMGCX 13:01
PROVIDERS: PCP Student in an Organized Health Care Education/Training Program; Visit Provider Student in an Organized Health Care Education/Training Program
DX: Z13.1 Encounter for screening for diabetes mellitus (principal); I10 Essential (primary) hypertension; R19.8 Other specified symptoms and signs involving the digestive system and abdomen
CPT/HCPCS: 36415; 74018; 80053; 80061; 82306; 83036; 83835; 84443; 85025

== ENCOUNTER → 2025-01-13 13:05 | Outpatient (BNV) | payer OTHER, SELFPAY | PROVIDERS: PCP Student in an Organized Health Care Education/Training Program; Visit Provider Radiology Diagnostic Radiology | DX: K59.00 Constipation, unspecified (principal) | CPT/HCPCS: 74018 ==

== ENCOUNTER 2025-02-07 16:04 | Outpatient (AMB) | payer OTHER, SELFPAY ==
[2025-02-07 16:06] VITALS: BP 130/82; PULSE 76; O2SAT 96; BMI 27.9
--- NOTE | 2025-02-07 16:06 | MHC.PC.OV ---
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 Accompanied by: Self / Same As Patient Allergies ezetimibe (From ZETIA) Allergy (Unknown, Verified 02/07/25 16:07) UNKNOWN Rxgvqbg-UQF-RzG Reductase Inhibitor ([id number] REDUCTASE INHIBITOR) Allergy (Unknown, Verified 02/07/25 16:07) UNKNOWN From AUGMENTIN Allergy (Unknown, Uncoded 11/16/19 15:42) UNKNOWN From Augmentin Allergy (Unknown, Uncoded 11/16/19 15:42) UNKNOWN From BUSPAR Allergy (Unknown, Uncoded 11/16/19 15:42) UNKNOWN Medication List - Last Reconciled 02/07/25 by Maninder Bagley MD acetaminophen (Tylenol Extra Strength) 500 mg PO ONCE carvedilol 6.25 mg PO BID cetirizine (Zyrtec) 10 mg PO DAILY PRN cyclobenzaprine 5 mg PO ONCE esomeprazole magnesium (Nexium) 80 mg PO DAILY fluorometholone 0.1% drps ophthalmic (eye) lisinopril-hydrochlorothiazide 20-12.5 mg 3 tabs PO DAILY magnesium oxide (MagOx) 400 mg PO DAILY montelukast 10 mg PO DAILY oxymetazoline (PF) 0.1% (Upneeq (PF)) place 1 drop into affected eye(s) once daily into the eye(s) PRN; simvastatin 10 mg PO BEDTIME tobramycin-dexamethasone 0.3-0.1 % 4 drps ophthalmic (eye) BID triamcinolone acetonide (Nasacort Allergy) 1 spray intranasal DAILY Tobacco use date assessed: 02/07/25 Dental Screening Dental Screen Date: 02/07/25 Did you have a dental visit in the last 12 months?: Yes Did you have a dental problem in the last 6 months where you did not have access to dental care?: No HPI HPI Comments History of Present Illness Details History of Present Illness The patient is a 59 year old male presenting for management of hypertension and review of lab results. He has been on multiple medications for blood pressure, including minoxidil, tadalafil (Cialis), metoprolol, and lisinopril. The current dose of minoxidil is noted to be for hair loss rather than for blood pressure control. The patient reports a history of trying carvedilol in the past, which bothered him, but also recalls that metoprolol caused issues initially as well. He has a history of a biopsy in 2010 performed in [place] for an uncertain condition, where lung pathology suggested possible sarcoidosis. The patient reports taking loperamide as needed for diarrhea but was told his x-ray showed a large amount of stool, suggesting constipation and overflow diarrhea. He also takes multiple other medications and supplements, including benzonatate for cough, Bacillus chewable tablets (probiotics), vitamin D, Nexium, and cyclobenzaprine for a neck issue. He reports his vitamin D was previously low. Medical History: - Hypertension. - History of constipation. - History of suspected sarcoidosis, diagnosis uncertain, following a lung biopsy in 2010. - History of low vitamin D. - Neck pain. - Hair loss. Surgical History: - Lung biopsy in 2010. Medications: - Minoxidil: For blood pressure, though noted to be a hair loss dose. - Tadalafil (Cialis): For blood pressure. - Metoprolol 25 mg: Twice daily for heart rate. - Benzonatate: For cough, as needed. - Bacillus chewable tablets: A probiotic. - Vitamin D supplementation. - Nexium. - Cyclobenzaprine: For a neck issue. - Loperamide: As needed for diarrhea. - Simvastatin 10 mg. - Eye drops. - Nasal spray. - Lisinopril: Three doses daily. Diagnostic Results: - Labs: Vitamin D level is 153. - Imaging: Abdominal X-ray showed a large amount of stool. Social History - Stress: Patient is advised not to stress. Health Maintenance - Medication review and deprescribing: Multiple unnecessary medications were identified and discontinued, including benzonatate, probiotics, vitamin D, minoxidil, and tadalafil. - Diet: Recommended eating yogurt for probiotics instead of taking supplements. - Home monitoring: Patient instructed to obtain a blood pressure cuff and monitor his pressure daily at home. Patient was informed and verbally consented to the use of an ambient scribe for clinic note documentation during this visit. Vital signs reviewed. Comprehensive history, review of systems, and physical exam completed. Medications, allergies, and problem list reviewed and updated. Counseling provided on nutrition, regular exercise, sleep hygiene, and moderation of alcohol use. Discussed age-appropriate screenings (mammogram, colonoscopy, Pap, bone density) and immunizations (flu, COVID, shingles, Tdap). Screened for depression, fall risk, and home safety; no current concerns. Discussed stress management, dental and vision care, and importance of ongoing preventive follow-up. Routine labs ordered for metabolic and lipid screening. Patient educated on healthy lifestyle and agrees with the plan. [facility] Medical History (Updated 02/07/25 @ 17:37 by Maninder Bagley MD) Diarrhea Leg pain Dyspnea Abnormal bowel movement Hypertension Surgical History (Updated 11/13/24 @ 16:52 by Luna Llanes) History of colonoscopy (~02/26/21) Family History (Updated 02/07/25 @ 16:15 by Chen Maria MA) Mother No problems noted. Father No problems noted. 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 Matthew Martinez, Fawn Phipps, Valentino Cho and colleagues, with an educational darshan from [employer] Review of Systems Narrative Review of Systems - Neurological: Reports no headaches. - Gastrointestinal: Reports diarrhea, but imaging shows constipation. Denies issues taking Nexium without a probiotic. - Musculoskeletal: Reports an issue with his neck. Reports a tender, bruised-feeling bump on his leg which he did not injure. - Dermatologic/Integumentary: Reports a bump in his neck/gland area, possibly from sweat. Reports hair loss. All systems reviewed & are unremarkable except as reviewed in HPI and above Physical exam (Primary Care) Vital Signs: Last Vital Signs Pulse 76 02/07/25 16:06 BP 130/82 02/07/25 16:06 Pulse Ox 96 02/07/25 16:06 Oxygen Delivery Method Room Air 02/07/25 16:06 BMI result Body Mass Index 27.9 Tobacco/Smoking Status: Tobacco use Status Tobacco use date assessed 02/07/25 02/07/25 16:15 Patient Tobacco Use Status Never used Tobacco 02/07/25 16:15 e-Cigarette/Vaping Use Never Used 02/07/25 16:15 Thrive Assessment: Date of Thrive Assessment Date Thrive assessed 11/14/24 02/07/25 16:15 Narrative Physical Exam General: Alert and oriented, Well nourished, No acute distress. Eye: Pupils are equal, round and reactive to light, Intact accommodation, Extraocular movements are intact, Normal conjunctiva, Vision unchanged. HENT: Normocephalic, Atraumatic, Tympanic membranes are clear, Normal hearing, Oral mucosa is moist, No pharyngeal erythema, Ear canals patent. Respiratory: Lungs CTA bilaterally, No wheeze, Respirations are non-labored. Cardiovascular: Regular rate, Regular rhythm, S1 auscultated, S2 auscultated, No murmur, Good pulses equal in all extremities, Normal peripheral perfusion, No edema. Gastrointestinal: Soft, Non-tender, Non-distended, Normal bowel sounds, No organomegaly. Musculoskeletal: Normal range of motion, Normal strength, No tenderness, No swelling, No deformity, Normal gait. Integumentary: Warm, Dry, Britt, Intact. Neurologic: Alert, Oriented, Normal sensory, Normal motor function, No focal defects, Cranial Nerves II-XII are grossly intact, Normal deep tendon reflexes. Psychiatric: Cooperative, Appropriate mood & affect, Normal judgment. Coding Level of Care Code Est Pt Level 4 (67921) Add On Problem Visit Only Diagnoses Primary hypertension I10 Hypertension type: primary hypertension Diarrhea, unspecified type R19.7 Diarrhea type: unspecified type Pain of left lower extremity M79.605 Laterality: left Assessment & Plan Assessment & Plan (1) Hypertension: Comment: - The patient's current regimen is inappropriate; minoxidil is at a hair-loss dose, and tadalafil is not indicated for systemic hypertension. - Discontinue minoxidil, tadalafil, and metoprolol. - Initiate carvedilol 6.25 mg twice daily, to be taken 12 hours apart. - Continue lisinopril, adjusting the schedule to two pills in the morning and one at night. - Patient to monitor blood pressure daily at home and bring readings to the follow-up appointment. - Follow up in two weeks to reassess blood pressure control. - If blood pressure is not controlled in one to two months, will refer to a personnel placement specialist for specialist management. Code(s): I10 - Essential (primary) hypertension Category: Medical Qualifiers: Hypertension type: primary hypertension Qualified Code(s): I10 - Essential (primary) hypertension (2) Diarrhea: Comment: - Patient has a large stool burden on imaging and is experiencing overflow diarrhea, worsened by loperamide use. - Discontinue loperamide. - Initiate MiraLax, two scoops daily, to achieve bowel cleanout. - Once regular bowel movements are established, reduce MiraLax to one scoop daily for maintenance. Code(s): R19.7 - Diarrhea, unspecified Category: Medical Qualifiers: Diarrhea type: unspecified type Qualified Code(s): R19.7 - Diarrhea, unspecified (3) Leg pain: Comment: The patient reports a tender, bruised-feeling bump on his leg without a history of traumaPlan to order an X-ray of the leg to evaluate the bony prominence. Code(s): M79.606 - Pain in leg, unspecified Category: Medical Qualifiers: Laterality: left Qualified Code(s): M79.605 - Pain in left leg Plan I informed the patient that his current medication regimen for blood pressure is not evidence-based, specifically noting that tadalafil (Cialis) is not for systemic hypertension and minoxidil is being taken at a dose for hair loss, not blood pressure control. I explained the plan to stop minoxidil, tadalafil, and metoprolol, and to start carvedilol, a beta-woo that treats both heart rate and blood pressure. I counseled him that the primary side effect of carvedilol is lowering blood pressure too much, which is a desired effect in his case. I also addressed his polypharmacy, explaining that he is taking medications like an 82-year-old and that many, such as benzonatate, probiotics, and vitamin D, are unnecessary and should be stopped. Regarding his gastrointestinal symptoms, I showed him the x-ray revealing a large amount of stool and explained the concept of overflow diarrhea resulting from constipation, clarifying why loperamide should be stopped and MiraLax started. We established a plan for him to monitor his blood pressure daily and follow up every two weeks until it is controlled. I explicitly stated that if I cannot get his pressure under control within a month or two, he will be referred to a personnel placement specialist, who are hypertension specialists. I emphasized the importance of trusting the process and giving the new medication regimen two weeks to work without expecting immediate negative side effects. Orders: Orders XR tibia fibula LT 2V Today M79.606 - Pain in leg, unspecified Medications: New carvedilol must administer with a meal/food 6.25 mg PO BID 60 tabs 0RF Discontinued minoxidil Discontinued Reason: Doctor's Order 2.5 mg PO BID 30 days 60 tabs 0RF Patient Instructions: - Stop taking metoprolol, minoxidil, and tadalafil (Cialis). - Start taking carvedilol 6.25 mg. Take one pill in the morning and one pill in the evening, about 12 hours apart. - Change your lisinopril schedule: take two lisinopril pills in the morning and one lisinopril pill at night. - Stop taking your benzonatate (cough medicine), probiotic pills, and vitamin D supplement. - Stop taking loperamide (the anti-diarrhea medicine). - Start taking [id number] MiraLax. Use two scoops a day until your bowel movements become regular, then you can reduce it to one scoop a day. - Get a blood pressure cuff and check your blood pressure every day. Write the numbers down and bring the log with you to your next appointment. - Go for an X-ray of your leg for the bump you pointed out. - You must give the new medications two weeks to work. Do not call if you feel off before two weeks have passed. - Return to the clinic in two weeks for a follow-up visit on the .
--- OUTSIDE RECORDS SUMMARY | 2025-02-08 00:46 | XMS_ITS | Data Portability ---
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 Plan of Treatment [...] ofloxacin 0.3 % ear drops 2024 025 [id number], [address] [facility], [place], [place], [phone], 11/22/2024 15:43:12 Patient TargetsNo targets recorded. 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; Note: Date Diagnosed : 09/04/2014 11:08 AM (478.5) Not Available [facility] 4 02:53:47 Allergic rhinitis caused by pollen 80088338 Active 2014 Allergic rhinitis due to pollen; Note: Date Diagnosed : 12/06/2014 4:09 PM (J30.1) Not Available [facility] 4 02:53:51 Uncomplic ated asthma 754117219 Active 2014 Unspecifi ed asthma, uncomplic ated; Note: Date Diagnosed : 12/06/2014 4:09 PM (J45.909) Not Available [facility] 4 02:53:45 Impacted cerumen of bilateral ears 74753642410 85758 Active 2014 Impacted cerumen, bilateral ; Note: Date Diagnosed : 12/06/2014 4:09 PM (H61.23) RENÉ HAINES MD [address] [place] [address], [place], [address] , [facility] 5 15:26:33 Difficult y speaking Active 2014 Hoarsenes s; Note: Date Diagnosed : 5 5:56 PM (784.49) Hoarsen ess; Note: Date Diagnosed : 09/21/2014 4:40 PM (784.49) ; Start Date : 5 Not Available [facility] 4 02:53:51 Dysphonia 13696447 Active 2014 Hoarsenes s; Note: Date Diagnosed : 5 8:52 AM (R49.0) Not Available [facility] 4 02:53:51 Otalgia of left ear 5105166128 Active 2019 Otalgia, left ear; Note: Date Diagnosed : 0 3:36 PM (H92.02) Not Available [facility] 4 02:53:50 Bilateral temporoma ndibular joint pain 00961446250 335956 Active 2019 Arthralgi a of bilateral temporoma ndibular joint; Note: Date Diagnosed : 0 3:37 PM (M26.623) Not Available [facility] 4 02:53:49 Xerostomi a 02061159 Active 2021 Dry mouth, unspecifi ed; Note: Date Diagnosed : 02/04/2022 4:48 PM (R68.2) Not Available [facility] 4 02:53:48 Essential hypertens ion 59023982 Active 2021 Essential (primary) hypertens ion; Note: Date Diagnosed : 02/04/2022 4:48 PM (I10) Not Available [facility] 4 02:53:47 Disorder of right Eustachia n tube 56045730707 82762 Active 2022 Other specified disorders of Eustachia n tube, right ear; Note: Date Diagnosed : 07/01/2022 1:17 PM (H69.81) Not Available [facility] 4 02:53:48 Diffuse otitis externa 31365390 Active 2023 Diffuse otitis externa, left ear; Note: Date Diagnosed : 06/30/2023 4:37 PM (H60.312) Not Available [facility] 4 02:53:50 Impacted cerumen in left ear 44437105816 27732 Active 2023 RENÉ HAINES MD [address] [place] [address], [place], [place], [address] , [place] - [facility] 4 16:48:31 Impacted cerumen in right ear 42574110059 52410 Active 2023 RENÉ HAINES MD [address] [facility],[place] [address], [place], [place], [address] , [place] - [facility] 4 16:48:31 Otorrhea of left ear 42653976809 34592 Active 2023 RENÉ HAINES MD [address] [facility],[place] [address], [place], [address] , [place] [facility] 4 16:49:07 Chronic mycotic otitis externa 457323147 Active 2023 RENÉ HAINES MD [address] [facility],[place] [address], [place], [place], [address] , [place] - [facility] 4 08:57:31 Acute infective otitis externa 797720724 Active 2023 RENÉ HAINES MD [address] [facility],[place] [address], [place], [place], [address] , [place] - [facility] 4 09:02:25 Cervical lymphaden opathy 688030112 Active 2023 RENÉ HAINES MD [address] [facility],[place] [address], [place], [place], [address] , [place] - [facility] 4 09:03:20 Candidal otitis externa 96331265 Active 2023 RENÉ HAINES MD [address] [facility],[place] [address], [place], [place], [address] , [place] [facility] 4 16:49:29 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 2023 RENÉ HAINES MD [address] [place] [address],[place] [address], [place], [place], [address] , [place] - [facility] 4 16:49:29 Tinnitus of right ear 84252680939 08 Active 2023 RENÉ HAINES MD [address] [place], [place] [address] [address], [place], [address] , [place] [facility] 5 15:26:33 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 37869931824 75997 Active 2024 RENÉ HAINES MD [address] [facility] [address], [place], [address] , [place] [facility] 5 15:27:22 Sensorine ural hearing loss of bilateral ears 689709159 Active 2024 MAXI LAINEZ [address] [facility] 100, [place], [place], [address] , [place] - [facility] 5 15:47:05 Sensorine ural hearing loss in right ear 55003679085 100 Active 2024 RENÉ HAINES MD [address] [facility],[place] [address], [place], [place], [address] , [place] - [facility] 5 17:10:01 Chronic eczema of external auditory canal 996833104 Active 2024 RENÉ HAINES MD [address] [facility],[place] [address], [place], [place], [address] , [place] - [facility] 5 15:37:47 Dysfuncti on of eustachia n tube 38138648 Active 2024 RENÉ HAINES MD [address] [facility],[place] [address], [place], [place], [address] , [place] [facility] 5 15:37:55 Problem Notes None recorded. Procedures Surgical History Date Name Laterality Status Provider Name and Address Organization Details Recorded Time Comp Audio with Tymps - 51697 & 57859 completed RENÉ HAINES MD [address] [facility],[place] [address], [place], [address], [place] - [facility] 01/23/2025 15:12:26 Cerumen removal with microscope bilateral completed RENÉ HAINES MD [address] [facility],[place] [address], [place], [address], [place] [facility] 01/23/2025 15:12:26 5 Comp Audio with Tymps - 99077 & 99307 completed RENÉ HAINES MD [address] [facility],[address], [address], [place] [facility] 12/12/2024 15:26:38 5 Cerumen removal with microscope bilateral completed RENÉ HAINES MD [address] [place] [address],[address], [address], [place] [facility] 12/12/2024 15:26:38 5 Comp Audio with Tymps - 27817 & 65341 completed RENÉ HAINES MD [address] [place] [address],[address], [address], [place] [facility] 11/22/2024 15:37:25 5 Cerumen removal with microscope bilateral completed RENÉ HAINES MD [address] [place] [address],[address], [address], [place] [facility] 11/22/2024 15:37:25 5 Comp Audio with Tymps - 96954 & 11393 completed RENÉ HAINES MD [address] [place] [address], [address], [place] [facility] 10/24/2024 16:43:00 5 Cerumen removal with microscope bilateral completed RENÉ HAINES MD [address] [place] [address], [address], [place] [facility] 10/24/2024 16:43:00 5 Comp Audio with Tymps - 29783 & 00538 completed RENÉ HAINES MD [address] [place] [address],[address], [address], [place] [facility] 09/28/2024 16:20:07 5 Cerumen removal with microscope bilateral completed RENÉ HAINES MD [address] [place] [address],[address], [address], [place] [facility] 09/28/2024 16:20:07 5 Air & Speech Audio with Tymps - 41233, 72350 & 35292 completed MAXI SMITH [address] [facility],[address], [address], [place] [facility] 09/28/2024 15:39:12 5 Comp Audio with Tymps - 84217 & 60885 completed RENÉ HAINES MD [address] [facility],[address], [address], [place] [facility] 08/17/2024 13:42:23 5 Cerumen removal with microscope bilateral completed RENÉ HAINES MD [address] [place] [address],[address], [address], [place] [facility] 08/17/2024 13:42:23 5 Comp Audio with Tymps - 73250 & 17409 completed RENÉ HAINES MD [address] [facility],[address], [address], [place] [facility] 07/25/2024 16:12:53 5 Cerumen removal with microscope bilateral completed RENÉ HAINES MD [address] [place] [address],[address], [address], [place] [facility] 07/25/2024 16:12:53 5 Comp Audio with Tymps - 55308 & 34057 completed RENÉ HAINES MD [address] [facility],[address], [address], [place] [facility] 06/27/2024 16:37:03 5 Cerumen removal with microscope bilateral completed RENÉ HAINES MD [address] [place] [address],[address], [address], [place] [facility] 06/27/2024 16:37:03 5 Comp Audio with Tymps - 66732 & 60215 completed RENÉ HAINES MD [address] [place] [address],[address], [address], [place] [facility] 04/25/2024 16:52:27 5 Cerumen removal with microscope bilateral completed RENÉ HAINES MD [address] [facility] [place],[address], [address], [place] [facility] 04/25/2024 16:52:27 5 Comp Audio with Tymps - 23489 & 85356 completed MAXI LAINEZ [address] [facility] [place],[address], [address], [place] [facility] 03/22/2024 15:46:54 5 Cerumen removal with microscope bilateral completed RENÉ HAINES MD [address] [facility],[address], [address], [place] [facility] 03/22/2024 15:27:34 4 Cerumen removal with microscope bilateral completed RENÉ HAINES MD [address] [facility],[address], [address], [place] [facility] 01/25/2024 17:06:33 4 Cerumen removal with microscope bilateral completed RENÉ HAINES MD [address] [facility],[address], [address], [place] [facility] 12/21/2023 16:34:46 4 Cerumen removal with microscope bilateral completed RENÉ HAINES MD [address] [place] [address],[address], [address], [place] [facility] 11/23/2023 17:25:30 4 Cerumen removal with microscope bilateral completed RENÉ HAINES MD [address] [facility] [place],[address], [address], [place] [facility] 10/21/2023 09:04:53 4 Cerumen removal with microscope bilateral completed REÉN HAINES MD [address] [facility],[address], [address], [place] [facility] 08/10/2023 16:48:39 Imaging Results None recorded. Procedure Notes None recorded. Medical Equipment None Reported. Allergies Allergen ID Allergen Name Allergen Category Reaction Reaction Severity Criticality Documentation Date Start Date Code Code System Note Provider Name and Address Organization Details Recorded Time 355691 amoxicill in medicatio n other Not available Not available 07/13/2023 723 RxNorm React ion: unkno wn, unspe cifie d;; Not Available [facility] 4 01:14:43 229025 ondansetr on medicatio n Not available Not available Not available 01/23/2025 74103 RxNorm Not Available [employer] [facility] 5 04:33:42 413556 ondansetr on hydrochlo ride medicatio n Not available Not available Not available 01/23/20252024 07137 8 RxNorm Other React ion(s ): made worse with nause a Not Available [employer] [facility] 5 04:34:33 Medications Name Sig Start Date Stop Date Status Note LastModified by Organization Details LastModified Time budesonid e 32 mcg/actua tion nasal spray 01/17 completed Medicati on ID: 8960 Dur ation Value: 30 Reason: () Brand Name: angel Morillo Method: E-Prescr ibed Sub s Allowed: subs [...] t Available minoxidil 2.5 mg tablet TAKE 1 TABLET BY MOUTH TWICE DAILY active Not Available Not Available No t Available sildenafi l 100 mg tablet 03/22 completed Medicati on ID: 528288 D uration Value: 12 Brand Name: raffy schaefer Send Method: E-Prescr ibed Sub s Allowed: subs OK Speci al Instruct ion: TAKE HALF (1/2) OF A TABLET BY MOUTH NEEDED M edicatio nGeneric Name: raffy schaefer Not Available Not Available Not Available ofloxacin 0.3 % ear drops INSTILL 5 DROPS TO AFFECTED EAR TWICE DAILY FOR 5 DAYS active Not Available Not Available No t Available amoxicill in 875 mg tablet TAKE 1 [...] mg tablet 2018 active Medicati on ID: 188854 D uration Value: 15 Brand Name: zolpidem [...] a day 06/24 completed Medicati on ID: [id number] D uration Value: 30 Prescri bed By Name: Amado Lane MD Brand Name: Zyrtec S end Method: E-Prescr ibed Sub s Allowed: subs OK Medic ationGen ericName : Zyrtec Not Available Not Available Not Available EpiPen 2-Maximo 0.3 mg/0.3 mL injection , auto-inje ctor 1 pen injector intramus cularly 2014 active Medicati on ID: [id number] D uration Value: 1 Prescri bed By Name: Amado Lane MD Brand Name: EpiPen 2-Maximo Se nd Method: E-Prescr ibed Sub s Allowed: subs OK Medic ationGen ericName : EpiPen 2-Maximo Not Available Not Available Not Available Lotemax 0.5 % eye gel drops 01/17 completed Medicati on ID: [id number] D uration Value: 30 Reason: () Brand [...] Details Last Updated DateTime 10/24/2024 170.18 cm [facility] [place] [facility] 10/24/2024 15:35:37 Date Recorded Body height Body mass index (BMI) Body weight Provider Name and Address Organization Details Last Updated DateTime 11/22/2024 170.18 cm 27.4 kg/m2 72321.66 g Jignesh Wetzel [place] - [facility] 11/22/2024 15:11:58 Date Recorded Body height Body mass index (BMI) Body weight Systolic And Diastolic Provider Name and Address Organization Details Last Updated DateTime 12/12/2024 170.18 cm 27.4 kg/m2 66048.66 g 130/79 mm[Hg] Jignesh Wetzel [place] - [facility] 12/12/2024 15:15:30 Date Recorded Body height Provider Name an d Address Organization Details Last Updated DateTime 01/23/2025 170.18 cm [facility] [place] [facility] 01/23/2025 15:00:23 Social History None recorded. Functional Status None recorded. Mental Status None recorded. Family History Nothing Reported. Medical History No medical history recorded. Past Encounters Encounter ID Performer Location Encounter Start Date Encounter Closed Date Diagnosis/Indication Diagnosis SNOMED-CT Code Diagnosis ICD10 Code Diagnosis IMO Codes Diagnosis Note [id number] RENÉ HAINES MD [facility] [address] [address] 08/10/2023 16:05:56 08/10/2023 16:12:36 Impacted cerumen of bilateral ears 9504209462 989376 H61.23 Otorrhea of left ear 101 0178751 136390 H92.12 left otorrhea has resolved [id number] RENÉ HAINES MD [facility] [address] [address] 10/21/2023 08:26:21 10/21/2023 09:06:10 Chronic mycotic otitis externa 111365581 H60.399 see below Acute infe ctive otitis externa 729990127 H60.399 He has otitis externa AU. I will treat with drops and keep routine debridemen t appointmen ts. I discussed water precaution s and keeping ear buds out. Cervical lymphadenopathy 985233692 R59.0 1cm noted in left level V. HE will f/u in 4 weeks for a recheck and bring his US radiology report. Likely reactive. Impacted c erumen of bilateral ears 4845791010 118922 H61.23 Recurrent Cerumen Impactions : Ears were meticulous ly cleaned bilaterall y today with a curette and suction. The patient tolerated this well and will follow up for repeat debridemen t per routine. [id number] RENÉ HAINES MD [facility] [address] [address] 11/23/2023 16:03:42 11/23/2023 16:56:49 Chronic mycotic otitis externa 056007738 H60.399 see below Dermal mycosis 40141763 B36.9 see below Candidal o titis externa 74178526 B37.84 Will treat for fungal OE. He has f/u next month to recheck. Impacted c erumen of bilateral ears 0652057911 246197 H61.23 Recurrent Cerumen Impactions : Ears were meticulous ly cleaned bilaterall y today with a curette and suction. The patient tolerated this well and will follow up for repeat debridemen t per routine. [id number] RENÉ HAINES MD [facility] [address] [address] 12/21/2023 16:12:06 12/21/2023 16:37:27 Chronic mycotic otitis externa 186647569 H60.399 improved. Impacted c erumen of bilateral ears 4609917736 459898 H61.23 Recurrent Cerumen Impactions : Ears were meticulous ly cleaned bilaterall y today with a curette and suction. The patient tolerated this well and will follow up for repeat debridemen t per routine. [id number] RENÉ HAINES MD [facility] [address] [address] 01/25/2024 15:53:37 01/25/2024 17:00:16 Impacted cerumen of bilateral ears 2960383074 642255 H61.23 Recurrent Cerumen Impactions : Ears were meticulous ly cleaned bilaterall y today with a curette and suction. The patient tolerated this well and will follow up for repeat debridemen t per routine. Xerostomia 77916842 K11. 7 agree with trying to wean off zyrtec. I offered laryngosco py but he deferred today. [id number] RENÉ HAINES MD [facility] [address] [address] 02/24/2024 08:25:40 02/24/2024 09:15:27 Impacted cerumen of bilateral ears 8745949564 435784 H61.23 Recurrent Cerumen Impactions : Ears were meticulous ly cleaned bilaterall y today with a curette and suction. The patient tolerated this well and will follow up for repeat debridemen t per routine. Tinnitus of right ear 48 71352181 108 H93.11 No obvious effusion on exam. Drum was mobile. I recommend autoinsuff lation. I recommend an audiogram but there was not availabili ty today so we will do a hearing test first at the next visit. [id number] RENÉ HAINES MD [facility] [address] [address] 03/22/2024 14:58:36 03/22/2024 16:22:05 Impacted cerumen of bilateral ears 7291793443 338182 H61.23 Recurrent Cerumen Impactions : Ears were meticulous ly cleaned bilaterall y today with a curette and suction. The patient tolerated this well and will follow up for repeat debridemen t per routine. Hyperacusi s of right ear 0013622090 661597 H93.231 I discussed wearing an ear plug when bothersome Sensorineu ral hearing loss of bilateral ears 125201885 H90.3 Audiologic al evaluation results: Right ear: Mild rising to normal sloping to moderately -severe sensorineu ral hearing loss with excellent word recognitio n. Left ear: Normal sloping to mild sensorineu ral hearing loss with excellent word recognitio n. Tympanomet ry: Right Ear:Type A Left Ear:Type A Sensorineu ral hearing loss in right ear 1684155319 9100 H90.A21 Given the asymmetric hearing loss I recommend an MRI IAC with contrast to evaluate for retrocochl ear pathology. We will review results when complete. Tinnitus of right ear 48 06368594 108 H93.11 Ear exam was normal. Audiogram was reviewed. We discussed the associatio n between sensorineu ral hearing loss and tinnitus. We discussed masking for tinnitus. He's quite distressed about his hearing loss and tinnitus. I spent significan t time counsellin g him on the above. i discussed the [employer] eliza as well. [id number] RENÉ HAINES MD [facility] [address] [address] 04/25/2024 15:31:07 04/25/2024 16:16:15 Impacted cerumen of bilateral ears 5373553268 299538 H61.23 Recurrent Cerumen Impactions : Ears were meticulous ly cleaned bilaterall y today with a curette and suction. The patient tolerated this well and will follow up for repeat debridemen t per routine. Hyperacusi s of right ear 4775165495 267329 H93.231 he is slightly less bothered at this time. Sensorineu ral hearing loss in right ear 9402313544 9100 H90.A21 I gave reassuranc e there are no tumors AD. Tinnitus of right ear 48 35348112 108 H93.11 Less bothersome . Will observe. [id number] RENÉ HAINES MD [facility] [address] [address] 06/27/2024 16:15:00 06/27/2024 16:36:34 Impacted cerumen of bilateral ears 2529086309 754201 H61.23 Recurrent Cerumen Impactions : Ears were meticulous ly cleaned bilaterall y today with a curette and suction. The patient tolerated this well and will follow up for repeat debridemen t per routine. Hyperacusi s of right ear 9573003924 192420 H93.231 he is slightly less bothered at this time. Sensorineu ral hearing loss in right ear 5066405296 9100 H90.A21 I gave reassuranc e there are no tumors AD. Tinnitus of right ear 48 19060157 108 H93.11 Less bothersome . Will observe. [id number] RENÉ HAINES MD [facility] [address] [address] 07/25/2024 15:23:23 07/25/2024 16:25:55 Impacted cerumen of bilateral ears 2000900701 025820 H61.23 Recurrent Cerumen Impactions : Ears were meticulous ly cleaned bilaterall y today with a curette and suction. The patient tolerated this well and will follow up for repeat debridemen t per routine. Sensorineu ral hearing loss in right ear 9749283853 9100 H90.A21 I gave reassuranc e there are no tumors AD. Tinnitus of right ear 48 55671285 108 H93.11 Less bothersome . Will observe. [id number] RENÉ HAINES MD [facility] [address] [place] [address] 08/17/2024 13:19:12 08/17/2024 13:49:39 Impacted cerumen of bilateral ears 6841815766 474608 H61.23 Recurrent Cerumen Impactions : Ears were meticulous ly cleaned bilaterall y today with a curette and suction. The patient tolerated this well and will follow up for repeat debridemen t per routine. Sensorineu ral hearing loss in right ear 1464231867 9100 H90.A21 I gave reassuranc e there are no tumors AD. Tinnitus of right ear 48 54597179 108 H93.11 Less bothersome . Will observe. [id number] RENÉ HAINES MD [facility] [address] [address] 09/28/2024 15:02:24 09/28/2024 16:59:28 Sensorineural hearing loss of bilateral ears 212309347 H90.3 Audiologic al evaluation results: Right ear:Mild [...] loss. Impacted c erumen of bilateral ears 2697178241 354071 H61.23 Recurrent Cerumen Impactions : Ears were meticulous ly cleaned bilaterall y today with a curette and suction. The patient tolerated this well and will follow up for repeat debridemen t per routine. Tinnitus of right ear 48 42503763 108 H93.11 Less bothersome . Will observe. [id number] RENÉ HAINES MD [facility] [address] [address] 10/24/2024 15:31:24 10/24/2024 16:00:51 Impacted cerumen of bilateral ears 0795005136 970925 H61.23 Recurrent Cerumen Impactions : Ears were meticulous ly cleaned bilaterall y today with a curette and suction. The patient tolerated this well and will follow up for repeat debridemen t per routine. Tinnitus of right ear 48 22360130 108 H93.11 Less bothersome . Will observe. [id number] RENÉ HAINES MD [facility] [address] [address] 11/22/2024 15:07:03 11/22/2024 15:41:15 Impacted cerumen of bilateral ears 6197271299 052792 H61.23 Recurrent Cerumen Impactions : Ears were meticulous ly cleaned bilaterall y today with a curette and suction. The patient tolerated this well and will follow up for repeat debridemen t per routine. Tinnitus of right ear 48 62269195 108 H93.11 Less bothersome . Will observe. Chronic ec zema of external auditory canal 525553294 H60.8X3 [id number] He had some very scant purulent drainage on the right. I recommend treating with drops. He was not interested in taking a steroid drops so we will use ofloxacin which he felt worked well for him in the past. He will keep his follow-up for [place] debr[place]. [id number] RENÉ HAINES MD [facility] [address] [address] 12/12/2024 15:06:41 12/12/2024 15:24:23 Impacted cerumen of bilateral ears [id number] 130522 H61.23 Recurrent Cerumen Impactions : Ears were meticulous ly cleaned bilaterall y today with a curette and suction. The patient tolerated this well and will follow up for repeat debridemen t per routine. Tinnitus of right ear 48 [id number] 108 H93.11 Less bothersome . Will observe. Chronic ec zema of external auditory canal 138398248 H60.8X3 [id number] No purulence today. I sent drops last time he didn't use. He will hold on to them for the future but no sign of infection today. [id number] RENÉ HAINES MD [facility] [address] [address] 01/23/2025 14:56:26 01/24/2025 09:03:09 Impacted cerumen of bilateral ears [id number] 191055 H61.23 Recurrent Cerumen Impactions : Ears were meticulous ly cleaned bilaterall y today with a curette and suction. The patient tolerated this well and will follow up for repeat debridemen t per routine. Tinnitus of right ear 48 04245181 108 H93.11 Less bothersome . Will observe. Chronic ec zema of external auditory canal 598126493 H60.8X3 [id number] No purulence today. I sent drops last [...] Member ID Dunn Member ID Guarantor Name 01/23/[address] [facility] [id number] Bulmaro Okeefe [id number] Bulmaro Okeefe Notes Date Note Type Note Provider Name and Address Organization Details Recorded Time 09/28/2024 text/html ROS as noted in the HPI He presents for asymmetric hearing loss AD and cerumen impaction. Prior MRI was negative for retrocochlear pathology. He requires frequent debridements of his ears due to cerumen accumulation. Audio today showed slight improvement in low frequency hearing AD compared to March. RENÉ HAINES MD [address] [place] [address], [address], [facility] - [facility] 09/28/2024 16:21:28 10/24/2024 text/html ROS as noted in the HPI He presents for asymmetric hearing loss AD and cerumen impaction. Prior MRI was negative for retrocochlear pathology. He requires frequent debridements of his ears due to cerumen accumulation. RENÉ HAINES MD [address] [place] [address], [phone], [facility] - [facility] 10/24/2024 16:43:45 11/22/2024 text/html ROS as noted in the HPI He presents for asymmetric hearing loss AD and cerumen impaction. Prior MRI was negative for retrocochlear pathology. He requires frequent debridements of his ears due to cerumen accumulation. RENÉ HAINES MD [address] [place] [address], [address], [facility] - [facility] 11/22/2024 15:43:00 12/12/2024 text/html ROS as noted in the HPI He presents for asymmetric hearing loss AD and cerumen impaction. Prior MRI was negative for retrocochlear pathology. He requires frequent debridements of his ears due to cerumen accumulation. RENÉ HAINES MD [address] [facility],[address], [address], [place] - [facility] 12/12/2024 15:28:11 01/23/2025 text/html ROS as noted in the HPI He presents for asymmetric hearing loss AD and cerumen impaction. Prior MRI was negative for retrocochlear pathology. He requires frequent debridements of his ears due to cerumen accumulation. RENÉ HAINES MD [address] [facility],[place] [address], [place], [address], [facility] - [facility] 01/23/2025 15:13:35
--- OUTSIDE RECORDS SUMMARY | 2025-02-08 00:46 | XMS_ITS | Continuity of Care Document ---
Author Organization [place] - [facility], [facility] Address [address] [place] [address] Care Team Providers Care Reprographics Technician Name Role Phone BEAR NANNETTE Primary Care Provider [phone] Assessment No assessment recorded. Plan of Treatment [...] Address Organization Details Recorded Time Allergic rhinitis [id number] Active 2013 Allergic Rhinitis; CMS Risk: low risk Note : Date Diagnosed : 4 3:59 PM (477.9) Not Available 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; Note: Date Diagnosed : 09/04/2014 11:08 AM (478.5) Not Available Replaced by [facility] 4 02:53:47 Allergic rhinitis caused by pollen 18041860 Active 2014 Allergic rhinitis due to pollen; Note: Date Diagnosed : 12/06/2014 4:09 PM (J30.1) Not Available Replaced by [facility] 4 02:53:51 Uncomplic ated asthma 133369695 Active 2014 Unspecifi ed asthma, uncomplic ated; Note: Date Diagnosed : 12/06/2014 4:09 PM (J45.909) Not Available Replaced by [facility] 4 02:53:45 Impacted cerumen of bilateral ears 91542267530 47111 Active 2014 Impacted cerumen, bilateral ; Note: Date Diagnosed : 12/06/2014 4:09 PM (H61.23) RENÉ HAINES MD [address] [place] [address], [place], [address] [facility] 5 15:26:33 Difficult y speaking Active 2014 Hoarsenes s; Note: Date Diagnosed : 5 5:56 PM (784.49) Hoarsen ess; Note: Date Diagnosed : 09/21/2014 4:40 PM (784.49) ; Start Date : 5 Not Available Replaced by [facility] 4 02:53:51 Dysphonia 44004139 Active 2014 Hoarsenes s; Note: Date Diagnosed : 5 8:52 AM (R49.0) Not Available [facility] 4 02:53:51 Otalgia of left ear 9514071935 Active 2019 Otalgia, left ear; Note: Date Diagnosed : 0 3:36 PM (H92.02) Not Available [facility] 4 02:53:50 Bilateral temporoma ndibular joint pain 55116912902 983816 Active 2019 Arthralgi a of bilateral temporoma ndibular joint; Note: Date Diagnosed : 0 3:37 PM (M26.623) Not Available [facility] 4 02:53:49 Xerostomi a 21496621 Active 2021 Dry mouth, unspecifi ed; Note: Date Diagnosed : 02/04/2022 4:48 PM (R68.2) Not Available Replaced by [facility] 4 02:53:48 Essential hypertens ion 16656175 Active 2021 Essential (primary) hypertens ion; Note: Date Diagnosed : 02/04/2022 4:48 PM (I10) Not Available Replaced by [facility] 4 02:53:47 Disorder of right Eustachia n tube 55583277764 87370 Active 2022 Other specified disorders of Eustachia n tube, right ear; Note: Date Diagnosed : 07/01/2022 1:17 PM (H69.81) Not Available Replaced by [facility] 4 02:53:48 Diffuse otitis externa 10615244 Active 2023 Diffuse otitis externa, left ear; Note: Date Diagnosed : 06/30/2023 4:37 PM (H60.312) Not Available Replaced by [facility] 4 02:53:50 Impacted cerumen in left ear 52771118850 59286 Active 2023 RENÉ HAINES MD 100 [facility], [place], [address] , [place] - [facility] [place] 4 16:48:31 Impacted cerumen in right ear 10396155890 Active 2023 RENÉ HAINES MD [address] [place] [address],[facility], [place], [address] , [place] [facility] [place] 4 16:48:31 Otorrhea of left ear 53129412019 12277 Active 2023 RENÉ HAINES MD [facility] [address], [place], [address] , [place] [facility] [place] 4 16:49:07 Chronic mycotic otitis externa 331388748 Active 2023 RENÉ HAINES MD [facility],[place] [facility], [place], [address] , [place] [facility] [place] 4 08:57:31 Acute infective otitis externa 701883980 Active 2023 RENÉ HAINES MD [facility],[place] [address], [place], [address] , [place] [facility] [place] 4 09:02:25 Cervical lymphaden opathy 191020197 Active 2023 RENÉ HAINES MD [address] [facility],[place] [address], [place], [address] , [place] [facility] [place] 4 09:03:20 Candidal otitis externa 86273592 Active 2023 RENÉ HAINES MD [address] [facility],[place] [address], [place], [address] , [place] [facility] [place] 4 16:49:29 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 RENÉ HAINES MD [address] [facility],[place] [address], [place], [address] , [place] [facility] 4 16:49:29 Tinnitus of right ear 90969670727 08 Active 2023 RENÉ HAINES MD [address] [facility] [address], [place], [address] , [place] [facility] [place] 5 15:26:33 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 68067897419 67524 Active 2024 RENÉ HAINES MD [address] [facility] [address], [place], [address] , [place] [facility] [place] 5 15:27:22 Sensorine ural hearing loss of bilateral ears 086537431 Active 2024 AGNES GARNERMAXI [address] [facility],[place] [address], [place], [address] , [place] [facility] [place] 5 15:47:05 Sensorine ural hearing loss in right ear 68844600546 100 Active 2024 RENÉ HAINES MD [address] [facility],[place] [address], [place], [address] , [place] [facility] [place] 5 17:10:01 Chronic eczema of external auditory canal 247232639 Active 2024 RENÉ HAINES MD [address] [facility],[place] [address], [place], [address] , [place] [facility] [place] 15:37:47 Dysfuncti on of eustachia n tube 97764413 Active 2024 RENÉ HAINES MD [address] [facility],[place] [address], [place], [place], [address] , [place] [facility] [place] 15:37:55 Problem Notes None recorded. Procedures Surgical History Date Name Laterality Status Provider Name and Address Organization Details Recorded Time Comp Audio with Tymps - 40683 & 63572 completed RENÉ HAINES MD [address] [facility],[address], [address], [place] - [facility] [place] 01/23/2025 15:12:26 5 Cerumen removal with microscope bilateral completed RENÉ HAINES MD [address] [facility],[place] [address], [place], [address], [place] [facility] 01/23/2025 15:12:26 Comp Audio with Tymps - 88579 & 79453 completed RENÉ HAINES MD [address] [facility],[address], [address], [place] [facility] [place] 12/12/2024 15:26:38 Cerumen removal with microscope bilateral completed RENÉ HAINES MD [address] [facility],[address], [address], [place] [facility] [place] 12/12/2024 15:26:38 5 Comp Audio with Tymps - 57616 & 54114 completed RENÉ HAINES MD [address] [facility],[address], [address], [place] [facility] 11/22/2024 15:37:25 5 Cerumen removal with microscope bilateral completed RENÉ HAINES MD [address] [facility],[address], [address], [place] [facility] [place] 11/22/2024 15:37:25 5 Comp Audio with Tymps - 17810 & 30919 completed RENÉ HAINES MD [address] [place] [address],[address], [address], [place] [facility] 10/24/2024 16:43:00 5 Cerumen removal with microscope bilateral completed RENÉ HAINES MD [address] [facility],[address], [address], [place] [facility] 10/24/2024 16:43:00 5 Comp Audio with Tymps - 26907 & 52239 completed RENÉ HAINES MD [address] [place] [address],[address], [address], [place] [facility] 09/28/2024 16:20:07 5 Cerumen removal with microscope bilateral completed RENÉ HAINES MD [address] [facility],[address], [address], [place] [facility] 09/28/2024 16:20:07 5 Air & Speech Audio with Tymps - 45129, 05444 & 94315 completed MAXI SMITH [address] [facility],[address], [address], [place] [facility] 09/28/2024 15:39:12 5 Comp Audio with Tymps - 49161 & 69414 completed RENÉ HAINES MD [address], [address], [place] [facility] 08/17/2024 13:42:23 5 Cerumen removal with microscope bilateral completed RENÉ HAINES MD [facility],[address], [address], [place] [facility] [place] 08/17/2024 13:42:23 5 Comp Audio with Tymps - 15780 & 95796 completed RENÉ HAINES MD [address] [facility],[address], [address], [place] [facility] 07/25/2024 16:12:53 5 Cerumen removal with microscope bilateral completed RENÉ HAINES MD [address] [facility],[address], [address], [place] [facility] [place] 07/25/2024 16:12:53 5 Comp Audio with Tymps - 29964 & 64943 completed RENÉ HAINES MD [address] [facility],[address], [address], [place] [facility] 06/27/2024 16:37:03 5 Cerumen removal with microscope bilateral completed RENÉ HAINES MD [address] [facility],[address], [address], [place] [facility] 06/27/2024 16:37:03 5 Comp Audio with Tymps - 28482 & 57266 completed RENÉ HAINES MD [address] [facility],[address], [address], [place] [facility] 04/25/2024 16:52:27 5 Cerumen removal with microscope bilateral completed RENÉ HAINES MD [facility],[address], [address], [place] [facility] [place] 04/25/2024 16:52:27 5 Comp Audio with Tymps - 15796 & 50539 completed MAXI LAINEZ [facility],[address], [address], [facility] - [facility] [place] 03/22/2024 15:46:54 5 Cerumen removal with microscope bilateral completed ERNÉ HAINES MD [facility],[address], [address], [facility] - [facility] [place] 03/22/2024 15:27:34 4 Cerumen removal with microscope bilateral completed RENÉ HAINES MD [facility],[address], [address], [facility] - [facility] [place] 01/25/2024 17:06:33 4 Cerumen removal with microscope bilateral completed RENÉ HAINES MD [facility],[address], [address], [facility] - [facility] 12/21/2023 16:34:46 4 Cerumen removal with microscope bilateral completed RENÉ HAINES MD [address] [facility],[address], [address], [facility] - [facility] 11/23/2023 17:25:30 4 Cerumen removal with microscope bilateral completed RENÉ HAINES MD [address] [facility],[address], [address], [facility] - [facility] 10/21/2023 09:04:53 4 Cerumen removal with microscope bilateral completed RENÉ HAINES MD [address] [place] [address],[address], [address], [facility] - [facility] 08/10/2023 16:48:39 Imaging Results None recorded. Procedure Notes None recorded. Medical Equipment None Reported. Allergies Allergen ID Allergen Name Allergen Category Reaction Reaction Severity Criticality Documentation Date Start Date Code Code System Note Provider Name and Address Organization Details Recorded Time 187458 amoxicill in medicatio n other Not available Not available 07/13/2023 723 RxNorm React ion: unkno wn, unspe cifie d;; Not Available [facility] 4 01:14:43 348828 ondansetr on medicatio n Not available Not available Not available 01/23/2025 99575 RxNorm Not Available ruperto - External Data [employer] - prod 5 04:33:42 097687 ondansetr on hydrochlo ride medicatio n Not available Not available Not available 01/23/2025202414 8 RxNorm Other React ion(s ): made worse with nause a Not Available [facility]perto - External Data Service - prod 5 04:34:33 Medications Name Sig Start Date Stop Date Status Note LastModified by Organization Details LastModified Time budesonid e 32 mcg/actua tion nasal spray 01/17 completed Medicati on ID: 8960 Dur ation Value: 30 Reason: () Brand Name: budsimone ames Send Method: E-Prescr ibed Sub s Allowed: subs OK Speci al Instruct ion: USE 2 SPRAYS IN EACH NOSTRIL TWICE A DAY Medi cationGe neralyssaNam e: budesoni de Not Available Not Available [...] t Available sildenafi l 100 mg tablet 01/20/ 2020 01/22 /2025 completed Medicati on ID: 398144 D uration Value: 12 Brand Name: raffy schaefer Send Method: E-Prescr ibed Sub s Allowed: subs OK Speci al Instruct ion: TAKE HALF (1/2) OF A TABLET BY MOUTH NEEDED Corin Roachphilipp Name: raffy schaefer Not Available Not Available [...] mg tablet 2018 active Medicati on ID: 860400 D uration Value: 15 Brand Name: zolpidem [...] a day 06/24 completed Medicati on ID: 910485 D uration Value: 30 Prescri bed By Name: Amado Lane MD Brand Name: Zyrtec S end Method: E-Prescr ibed Sub s Allowed: subs OK Medic ationGen ericName : Zyrtec Not Available Not Available Not Available EpiPen 2-Maximo 0.3 mg/0.3 mL injection , auto-inje ctor 1 pen injector intramus cularly 2014 active Medicati on ID: [id number] D uration Value: 1 Prescri bed By Name: Amado Lane MD Brand Name: EpiPen 2-Maximo Se nd Method: E-Prescr ibed Sub s Allowed: subs OK Medic ationGen ericName : EpiPen 2-Maximo Not Available Not Available Not Available Lotemax 0.5 % eye gel drops 01/17 completed Medicati on ID: 548215 D uration Value: 30 Reason: () Brand Name: Lotemax Send Method: E-Prescr ibed Sub s Allowed: subs OK Medic Mina ericName : Lotemax Not Available Not Available Not Available Zoryve 0.3 % topical foam APPLY TOPICALL Y TO SCALP EVERY DAY active Not Available Not Available No t Available Vitals Date Recorded Body height Body mass index (BMI) Body weight Systolic And Diastolic Provider Name and Address Organization Details Last Updated DateTime 12/12/2024 170.18 cm 27.4 kg/m2 29458.66 g 130/79 mm[Hg] Jignesh Wetzel CT - [facility] 12/12/2024 15:15:30 Social History None recorded. Functional Status None recorded. Mental Status None recorded. Family History Nothing Reported. Medical History No medical history recorded. Past Encounters Encounter ID Performer Location Encounter Start Date Encounter Closed Date Diagnosis/Indication Diagnosis SNOMED-CT Code Diagnosis ICD10 Code Diagnosis IMO Codes Diagnosis Note [id number] RENÉ HAINES MD [facility] [address] [address] 11/22/2024 15:07:03 11/22/2024 15:41:15 Impacted cerumen of bilateral ears [id number] 443855 H61.23 Recurrent Cerumen Impactions : Ears were meticulous ly cleaned bilaterall y today with a curette and suction. The patient tolerated this well and will follow up for repeat debridemen t per routine. Tinnitus of right ear 48 29081883 108 H93.11 Less bothersome . Will observe. Chronic ec zema of external auditory canal 207688384 H60.8X3 [id number] He had some very scant purulent drainage on the right. I recommend treating with drops. He was not interested in taking a steroid drops so we will use ofloxacin which he felt worked well for him in the past. He will keep his follow-up for repeat debridemen t. [id number] RENÉ HAINES MD [facility] [address] [address] 12/12/2024 15:06:41 12/12/2024 15:24:23 Impacted cerumen of bilateral ears 8933977930 085531 H61.23 Recurrent Cerumen Impactions : Ears were meticulous ly cleaned bilaterall y today with a curette and suction. The patient tolerated this well and will follow up for repeat debridemen t per routine. Tinnitus of right ear 48 14352760 108 H93.11 Less bothersome . Will observe. Chronic ec zema of external auditory canal 495366054 H60.8X3 [id number] No purulence today. I sent drops last [...] Dunn Member ID Guarantor Name 12/12/2024 1 [facility] [id number] Bulmaro Okeefe [id number] Bulmaro Okeefe Notes Date Note Type Note Provider Name and Address Organization Details Recorded Time 12/12/2024 text/html ROS as noted in the HPI He presents for asymmetric hearing loss AD and cerumen impaction. Prior MRI was negative for retrocochlear pathology. He requires frequent debridements of his ears due to cerumen accumulation. RENÉ HAINES MD [address] [place] [address], [address], [facility] - [facility] 12/12/2024 15:28:11
--- OUTSIDE RECORDS SUMMARY | 2025-02-08 00:47 | XMS_ITS | Continuity of Care Document ---
Author Organization [place] [facility], [facility] Address [address] [place] [address] Care Team Providers Care Chronic Care Nurse Name Role Phone NANNETTE SIFUENTES Primary Care [...] ofloxacin 0.3 % ear drops 2024 025 [id number], [address], [place], [phone], 11/22/2024 15:43:12 Patient TargetsNo targets recorded. Patient InstructionsNo instructions recorded. Reason for Referral None Reported. 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; Note: Date Diagnosed : 09/04/2014 11:08 AM (478.5) Not Available [facility] 4 02:53:47 Allergic rhinitis caused by pollen 62061645 Active 2014 Allergic rhinitis due to pollen; Note: Date Diagnosed : 12/06/2014 4:09 PM (J30.1) Not Available [facility] 4 02:53:51 Uncomplic ated asthma 957581285 Active 2014 Unspecifi ed asthma, uncomplic ated; Note: Date Diagnosed : 12/06/2014 4:09 PM (J45.909) Not Available [facility] 4 02:53:45 Impacted cerumen of bilateral ears 81443734105 90115 Active 2014 Impacted cerumen, bilateral ; Note: Date Diagnosed : 12/06/2014 4:09 PM (H61.23) RENÉ HAINES MD [address] [place] [address], [place], [address] [facility] [place] [facility] 5 15:26:33 Difficult y speaking Active 2014 Hoarsenes s; Note: Date Diagnosed : 5 5:56 PM (784.49) Hoarsen ess; Note: Date Diagnosed : 09/21/2014 4:40 PM (784.49) ; Start Date : 5 Not Available [facility] 4 02:53:51 Dysphonia 27728309 Active 2014 Hoarsenes s; Note: Date Diagnosed : 5 8:52 AM (R49.0) Not Available [facility] 4 02:53:51 Otalgia of left ear 3489705676 Active 2019 Otalgia, left ear; Note: Date Diagnosed : 0 3:36 PM (H92.02) Not Available [facility] 4 02:53:50 Bilateral temporoma ndibular joint pain 98311410070 770580 Active 2019 Arthralgi a of bilateral temporoma ndibular joint; Note: Date Diagnosed : 0 3:37 PM (M26.623) Not Available [facility] 4 02:53:49 Xerostomi a 31582042 Active 2021 Dry mouth, unspecifi ed; Note: Date Diagnosed : 02/04/2022 4:48 PM (R68.2) Not Available [facility] 4 02:53:48 Essential hypertens ion 26763834 Active 2021 Essential (primary) hypertens ion; Note: Date Diagnosed : 02/04/2022 4:48 PM (I10) Not Available [facility] 4 02:53:47 Disorder of right Eustachia n tube 57615370404 Active 2022 Other specified disorders of Eustachia n tube, right ear; Note: Date Diagnosed : 07/01/2022 1:17 PM (H69.81) Not Available [facility] 4 02:53:48 Diffuse otitis externa 23939531 Active 2023 Diffuse otitis externa, left ear; Note: Date Diagnosed : 06/30/2023 4:37 PM (H60.312) Not Available [facility] 4 02:53:50 Impacted cerumen in left ear 14644110607 60996 Active 2023 RENÉ HAINES MD [address] [place] [address], [place], [address] , [facility] - [facility] 4 16:48:31 Impacted cerumen in right ear 66717668185 97735 Active 2023 RENÉ HAINES MD [address] [place], [place], [address] , [place] [facility] 4 16:48:31 Otorrhea of left ear 54903493940 87502 Active 2023 RENÉ HAINES MD [address] [facility] [place] [facility], [place], [place], [address] , [place] [facility] 4 16:49:07 Chronic mycotic otitis externa 553654021 Active 2023 RENÉ HAINES MD [address] [facility] [place] [address], [place], [address] , [place] [facility] 4 08:57:31 Acute infective otitis externa 574016841 Active 2023 RENÉ HAINES MD [address] [facility] [place] [address], [place], [place], [address] , [place] [facility] 4 09:02:25 Cervical lymphaden opathy 899119445 Active 2023 RENÉ HAINES MD [address] [facility] [place] [address], [place], [address] , [place] [facility] 4 09:03:20 Candidal otitis externa 35699415 Active 2023 RENÉ HAINES MD [address] [facility] [place] [address], [place], [place], [address] , [place] [facility] 4 16:49:29 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 RENÉ HAINES MD [address] [facility] [place] [address], [place], [place], [address] , [place] [facility] 4 16:49:29 Tinnitus of right ear 80020421985 08 Active 2023 RENÉ HAINES MD [address] [facility] [place], [place], [place], [address] , [place] [facility] 5 15:26:33 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 53839634563 Active 2024 RENÉ HAINES MD [address] [facility] [place] [address], [place], [address] , [place] [facility] 5 15:27:22 Sensorine ural hearing loss of bilateral ears 858061376 Active 2024 AGNES GARNERMAXI [address] [facility],[place] [address], [place], [address] , [place] [facility] 5 15:47:05 Sensorine ural hearing loss in right ear 58907129445 100 Active 2024 RENÉ HAINES MD [address] [facility],[place] [address], [place], [address] , [place] [facility] 5 17:10:01 Chronic eczema of external auditory canal 880124776 Active 2024 RENÉ HAINES MD [address] [facility],[place] [address], [place], [address] , [place] [facility] 5 15:37:47 Dysfuncti on of eustachia n tube 94995655 Active 2024 RENÉ HAINES MD [address] [facility],[place] [address], [place], [address] , [place] [facility] 5 15:37:55 Problem Notes None recorded. Procedures Surgical History Date Name Laterality Status Provider Name and Address Organization Details Recorded Time Comp Audio with Tymps - 22116 & 71689 completed RENÉ HAINES MD [address] [facility] [place],[address], [address], [place] [facility] 01/23/2025 15:12:26 5 Cerumen removal with microscope bilateral completed RENÉ HAINES MD [address] [facility] [place] [address], [place], [address], [place] [facility] 01/23/2025 15:12:26 5 Comp Audio with Tymps - 65203 & 00159 completed RENÉ HAINES MD 100 [facility],[address], [address], [place] [facility] 12/12/2024 15:26:38 5 Cerumen removal with microscope bilateral completed RENÉ HAINES MD 100 [facility],[address], [address], [place] [facility] 12/12/2024 15:26:38 5 Comp Audio with Tymps - 64587 & 54684 completed RENÉ HAINES MD [address] [place] [address],[address], [address], [place] [facility] 11/22/2024 15:37:25 5 Cerumen removal with microscope bilateral completed RENÉ HAINES MD [address] [place] [address],[address], [address], [place] [facility] 11/22/2024 15:37:25 5 Comp Audio with Tymps - 60711 & 13677 completed RENÉ HAINES MD [address] [place] [address],[address], [address], [place] [facility] 10/24/2024 16:43:00 5 Cerumen removal with microscope bilateral completed RENÉ HAINES MD [address] [place] [address],[address], [address], [place] [facility] 10/24/2024 16:43:00 5 Comp Audio with Tymps - 46637 & 58307 completed RENÉ HAINES MD [address] [place] [address],[address], [address], [place] [facility] 09/28/2024 16:20:07 5 Cerumen removal with microscope bilateral completed RENÉ HAINES MD [address] [place] [address],[address], [address], [place] [facility] 09/28/2024 16:20:07 5 Air & Speech Audio with Tymps - 19472, 99625 & 97020 completed MAXI SMITH [address] [place], [place] [address], [address], [place] [facility] 09/28/2024 15:39:12 5 Comp Audio with Tymps - 34588 & 31667 completed RENÉ HAINES MD [address] [facility],[address], [address], [place] [facility] 08/17/2024 13:42:23 5 Cerumen removal with microscope bilateral completed RENÉ HAINES MD 100 [facility],[address], [address], [place] [facility] 08/17/2024 13:42:23 5 Comp Audio with Tymps - 59883 & 56639 completed RENÉ HAINES MD 100 [facility],[address], [address], [place] [facility] 07/25/2024 16:12:53 5 Cerumen removal with microscope bilateral completed RENÉ HAINES MD 100 [facility],[address], [address], [place] [facility] 07/25/2024 16:12:53 5 Comp Audio with Tymps - 98262 & 58326 completed RENÉ HAINES MD 100 [facility],[address], [address], [place] [facility] 06/27/2024 16:37:03 5 Cerumen removal with microscope bilateral completed RENÉ HAINES MD 100 [facility],[address], [address], [place] [facility] 06/27/2024 16:37:03 5 Comp Audio with Tymps - 92478 & 38284 completed RENÉ HAINES MD 100 [facility],[address], [address], [place] [facility] 04/25/2024 16:52:27 5 Cerumen removal with microscope bilateral completed RENÉ HAINES MD [address] [facility] [place],[address], [address], [facility] - [facility] 04/25/2024 16:52:27 5 Comp Audio with Tymps - 82106 & 66443 completed MAXI LAINEZ [address] [facility] [place],[address], [address], [facility] - [facility] 03/22/2024 15:46:54 5 Cerumen removal with microscope bilateral completed RENÉ HAINES MD [address] [facility] [place],[address], [address], [facility] - [facility] 03/22/2024 15:27:34 4 Cerumen removal with microscope bilateral completed RENÉ HAINES MD [address] [place] [address],[address], [address], [facility] - [facility] 01/25/2024 17:06:33 4 Cerumen removal with microscope bilateral completed RENÉ HAINES MD 100 [facility],[address], [address], [facility] - [facility] 12/21/2023 16:34:46 4 Cerumen removal with microscope bilateral completed RENÉ HAINES MD [address] [facility] [place],[address], [address], [facility] - [facility] 11/23/2023 17:25:30 4 Cerumen removal with microscope bilateral completed RENÉ HAINES MD [address] [facility],[address], [address], [facility] - [facility] 10/21/2023 09:04:53 4 Cerumen removal with microscope bilateral completed RENÉ HAINES MD [address] [place] [address],[address], [address], [facility] - [facility] 08/10/2023 16:48:39 Imaging Results None recorded. Procedure Notes None recorded. Medical Equipment None Reported. Allergies Allergen ID Allergen Name Allergen Category Reaction Reaction Severity Criticality Documentation Date Start Date Code Code System Note Provider Name and Address Organization Details Recorded Time 497321 amoxicill in medicatio n other Not available Not available 07/13/2023 723 RxNorm React ion: unkno wn, unspe cifie d;; Not Available [facility] 4 01:14:43 937398 ondansetr on medicatio n Not available Not available Not available 01/23/2025 06554 RxNorm Not Available [employer] - prod 5 04:33:42 532869 ondansetr on hydrochlo ride medicatio n Not available Not available Not available 01/23/2025202414 8 RxNorm Other React ion(s ): made worse with nause a Not Available [employer] - prod 5 04:34:33 [...] IN EACH NOSTRIL TWICE A DAY Medi rhondaGe nerAsuncion e: budesoni de Not Available Not Available [...] mg tablet 03/22 completed Medicati on ID: 143109 D uration Value: 12 Brand Name: raffy schaefer Send Method: E-Prescr ibed Sub s Allowed: subs OK Speci al Instruct ion: TAKE HALF (1/2) OF A TABLET BY MOUTH NEEDED M ady nGeneric Name: raffy schaefer Not Available Not [...] mg tablet 2018 active Medicati on ID: [id number] D uration Value: 15 Brand Name: zolpidem [...] a day 06/24 completed Medicati on ID: [id number] D uration Value: 30 Prescri bed By Name: Amado Lane MD Brand Name: Zyrtec S end Method: E-Prescr ibed Sub s Allowed: subs OK Medic ationGen ericName : Zyrtec Not Available Not Available Not Available EpiPen 2-Maximo 0.3 mg/0.3 mL injection , auto-inje ctor 1 pen injector intramus cularly 2014 active Medicati on ID: [id number] D uration Value: 1 Prescri bed By Name: Amado Lane MD Brand Name: EpiPen 2-Maximo Se nd Method: E-Prescr ibed Sub s Allowed: subs OK Medic ationGen ericName : EpiPen 2-Maximo Not Available Not Available Not Available Lotemax 0.5 % eye gel drops 01/17 completed Medicati on ID: [id number] D uration Value: 30 Reason: () Brand [...] Updated DateTime 11/22/2024 170.18 cm 27.4 kg/m2 30266.66 g Jignesh Wetzel [place] [facility] 11/22/2024 15:11:58 Social History None recorded. Functional Status None recorded. Mental Status None recorded. Family History Nothing Reported. Medical History No medical history recorded. Past Encounters Encounter ID Performer Location Encounter Start Date Encounter Closed Date Diagnosis/Indication Diagnosis SNOMED-CT Code Diagnosis ICD10 Code Diagnosis IMO Codes Diagnosis Note [id number] RENÉ HAINES MD [facility] [address] [address] 10/24/2024 15:31:24 10/24/2024 16:00:51 Impacted cerumen of bilateral ears [id number] 308644 H61.23 Recurrent Cerumen Impactions : Ears were meticulous ly cleaned bilaterall y today with a curette and suction. The patient tolerated this well and will follow up for repeat debridemen t per routine. Tinnitus of right ear 48 07571106 108 H93.11 Less bothersome . Will observe. [id number] RENÉ HAINES MD [facility] [address] [address] 11/22/2024 15:07:03 11/22/2024 15:41:15 Impacted cerumen of bilateral ears 6489346068 299300 H61.23 Recurrent Cerumen Impactions : Ears were meticulous ly cleaned bilaterall y today with a curette and suction. The patient tolerated this well and will follow up for repeat debridemen t per routine. Tinnitus of right ear 48 21766076 108 H93.11 Less bothersome . Will observe. Chronic ec zema of external auditory canal 397908103 H60.8X3 54183329 He had some very scant purulent drainage [...] Dunn Member ID Guarantor Name 11/22/[address] [facility] [id number] 1 Bulmaro Okeefe [id number] Bulmaro Okeefe Notes Date Note Type Note Provider Name and Address Organization Details Recorded Time 11/22/2024 text/html ROS as noted in the HPI He presents for asymmetric hearing loss AD and cerumen impaction. Prior MRI was negative for retrocochlear pathology. He requires frequent debridements of his ears due to cerumen accumulation. RENÉ HAINES MD [address] [place] [address], [address], [facility] - [facility] 11/22/2024 15:43:00
--- OUTSIDE RECORDS SUMMARY | 2025-02-08 00:47 | XMS_ITS | Continuity of Care Document ---
Author Organization [place] - [facility], [facility] Address [address] [place] [address] Care Team Providers Care Web Services Manager Name Role Phone BEAR NANNETTE Primary Care Provider [phone] Assessment No assessment recorded. 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; Note: Date Diagnosed : 09/04/2014 11:08 AM (478.5) Not Available [facility] 4 02:53:47 Allergic rhinitis caused by pollen 84511385 Active 2014 Allergic rhinitis due to pollen; Note: Date Diagnosed : 12/06/2014 4:09 PM (J30.1) Not Available [facility] 4 02:53:51 Uncomplic ated asthma 815935028 Active 2014 Unspecifi ed asthma, uncomplic ated; Note: Date Diagnosed : 12/06/2014 4:09 PM (J45.909) Not Available [facility] 4 02:53:45 Impacted cerumen of bilateral ears 63192726069 85777 Active 2014 Impacted cerumen, bilateral ; Note: Date Diagnosed : 12/06/2014 4:09 PM (H61.23) RENÉ HAINES MD [address] [place] [address], [place], [address] [facility] 5 15:26:33 Difficult y speaking Active 2014 Hoarsenes s; Note: Date Diagnosed : 5 5:56 PM (784.49) Hoarsen ess; Note: Date Diagnosed : 09/21/2014 4:40 PM (784.49) ; Start Date : 5 Not Available [facility] 4 02:53:51 Dysphonia 68944530 Active 2014 Hoarsenes s; Note: Date Diagnosed : 5 8:52 AM (R49.0) Not Available [facility] 4 02:53:51 Otalgia of left ear 0091927514 Active 2019 Otalgia, left ear; Note: Date Diagnosed : 0 3:36 PM (H92.02) Not Available [facility] 4 02:53:50 Bilateral temporoma ndibular joint pain 28048961566 369235 Active 2019 Arthralgi a of bilateral temporoma ndibular joint; Note: Date Diagnosed : 0 3:37 PM (M26.623) Not Available [facility] 4 02:53:49 Xerostomi a 35149150 Active 2021 Dry mouth, unspecifi ed; Note: Date Diagnosed : 02/04/2022 4:48 PM (R68.2) Not Available [facility] 4 02:53:48 Essential hypertens ion 48932784 Active 2021 Essential (primary) hypertens ion; Note: Date Diagnosed : 02/04/2022 4:48 PM (I10) Not Available [facility] 4 02:53:47 Disorder of right Eustachia n tube 78495446122 26392 Active 2022 Other specified disorders of Eustachia n tube, right ear; Note: Date Diagnosed : 07/01/2022 1:17 PM (H69.81) Not Available [facility] 4 02:53:48 Diffuse otitis externa 90606686 Active 2023 Diffuse otitis externa, left ear; Note: Date Diagnosed : 06/30/2023 4:37 PM (H60.312) Not Available [facility] 4 02:53:50 Impacted cerumen in left ear 68069041717 99873 Active 2023 RENÉ HAINES MD [address] [facility] [place],[facility] [address], [place], [address] , [place] - [facility] 4 16:48:31 Impacted cerumen in right ear 36471328888 Active 2023 RENÉ HAINES MD [address] [place] [address],[facility], [place], [address] , [place] [facility] 4 16:48:31 Otorrhea of left ear 09528359675 01478 Active 2023 RENÉ HAINES MD [address] [facility] [place] [facility], [place], [address] , [place] [facility] 4 16:49:07 Chronic mycotic otitis externa 196981392 Active 2023 RENÉ HAINES MD [address] [facility] [place], [place], [address] , [place] [facility] 4 08:57:31 Acute infective otitis externa 408366928 Active 2023 RENÉ HAINES MD [address] [facility] [place] [address], [place], [address] , [place] [facility] 4 09:02:25 Cervical lymphaden opathy 192695635 Active 2023 RENÉ HAINES MD [address] [facility] [place] [address], [place], [address] , [place] [facility] 4 09:03:20 Candidal otitis externa 03656165 Active 2023 RENÉ HAINES MD [address] [facility] [place] [address], [place], [address] , [place] [facility] 4 16:49:29 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 RENÉ HAINES MD [address] [facility] [place] [address], [place], [address] , [place] [facility] 4 16:49:29 Tinnitus of right ear 18387822887 08 Active 2023 RENÉ HAINES MD [address] [facility] [place] [address], [place], [address] , [place] [facility] 5 15:26:33 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 [place] [address], [place], [address] , [place] [facility] 5 15:47:05 Sensorine ural hearing loss in right ear 01500370210 100 Active 2024 RENÉ HAINES MD [address] [facility] [place] [address], [place], [address] , [place] [facility] 5 17:10:01 Chronic eczema of external auditory canal 251376005 Active 2024 RENÉ HAINES MD [address] [facility] [place] [address], [place], [address] , [place] [facility] 15:37:47 Dysfuncti on of eustachia n tube 80351078 Active 2024 RENÉ HAINES MD [address] [facility] [place] [address], [place], [place], [address] , [place] [facility] 15:37:55 Problem Notes None recorded. Procedures Surgical History Date Name Laterality Status Provider Name and Address Organization Details Recorded Time Comp Audio with Tymps - 35916 & 41895 completed RENÉ HAINES MD [address] [facility] [place],[address], [address], [place] [facility] 01/23/2025 15:12:26 5 Cerumen removal with microscope bilateral completed RENÉ HAINES MD [address] [facility] [place] [address], [place], [address], [place] [facility] 01/23/2025 15:12:26 Comp Audio with Tymps - 78327 & 52142 completed RENÉ HAINES MD [address] [facility] [place],[address], [address], [place] [facility] 12/12/2024 15:26:38 Cerumen removal with microscope bilateral completed RENÉ HAINES MD [address] [facility] [place],[address], [address], [place] [facility] 12/12/2024 15:26:38 5 Comp Audio with Tymps - 74618 & 05978 completed RENÉ HAINES MD [address] [facility] [place],[address], [address], [place] [facility] 11/22/2024 15:37:25 5 Cerumen removal with microscope bilateral completed RENÉ HAINES MD [address] [facility] [place],[address], [address], [place] [facility] 11/22/2024 15:37:25 5 Comp Audio with Tymps - 08713 & 02471 completed RENÉ HAINES MD [address] [place] [address],[address], [address], [place] [facility] 10/24/2024 16:43:00 5 Cerumen removal with microscope bilateral completed RENÉ HAINES MD [address] [facility] [place],[address], [address], [place] [facility] 10/24/2024 16:43:00 5 Comp Audio with Tymps - 40929 & 21504 completed RENÉ HAINES MD [address] [place] [address],[address], [address], [place] [facility] 09/28/2024 16:20:07 5 Cerumen removal with microscope bilateral completed RENÉ HAINES MD [address] [facility] [place],[address], [address], [place] [facility] 09/28/2024 16:20:07 5 Air & Speech Audio with Tymps - 67442, 26710 & 59167 completed MAXI SMITH [address] [facility] [place],[address], [address], [place] [facility] 09/28/2024 15:39:12 5 Comp Audio with Tymps - 54817 & 75012 completed RENÉ HAINES MD [address], [address], [place] [facility] 08/17/2024 13:42:23 5 Cerumen removal with microscope bilateral completed RENÉ HAINES MD [address] [facility],[address], [address], [place] [facility] 08/17/2024 13:42:23 5 Comp Audio with Tymps - 12237 & 19064 completed RENÉ HAINES MD [address] [facility] [place],[address], [address], [place] [facility] 07/25/2024 16:12:53 5 Cerumen removal with microscope bilateral completed RENÉ HAINES MD [address] [facility] [place],[address], [address], [place] [facility] 07/25/2024 16:12:53 5 Comp Audio with Tymps - 14042 & 93394 completed RENÉ HAINES MD [address] [facility] [place],[address], [address], [place] [facility] 06/27/2024 16:37:03 5 Cerumen removal with microscope bilateral completed RENÉ HAINES MD [address] [facility] [place],[address], [address], [place] [facility] [place] 06/27/2024 16:37:03 5 Comp Audio with Tymps - 65917 & 11423 completed RENÉ HAINES MD [address] [facility] [place],[address], [address], [place] [facility] [place] 04/25/2024 16:52:27 5 Cerumen removal with microscope bilateral completed RENÉ HAINES MD [address] [facility] [place],[address], [address], [place] [facility] [place] 04/25/2024 16:52:27 5 Comp Audio with Tymps - 85365 & 09469 completed MAXI LAINEZ [address] [facility] [place],[address], [address], [facility] - [facility] [place] 03/22/2024 15:46:54 5 Cerumen removal with microscope bilateral completed RENÉ HAINES MD [address] [facility] [place],[address], [address], [facility] - [facility] [place] 03/22/2024 15:27:34 4 Cerumen removal with microscope bilateral completed RENÉ HAINES MD [address] [facility] [place],[address], [address], [facility] - [facility] 01/25/2024 17:06:33 4 Cerumen removal with microscope bilateral completed RENÉ HAINES MD [address] [facility] [place],[address], [address], [facility] - [facility] 12/21/2023 16:34:46 4 Cerumen removal with microscope bilateral completed RENÉ HAINES MD [address] [facility] [place],[address], [address], [facility] - [facility] 11/23/2023 17:25:30 4 Cerumen removal with microscope bilateral completed RENÉ HAINES MD [address] [facility] [place],[address], [address], [facility] - [facility] 10/21/2023 09:04:53 4 Cerumen removal with microscope bilateral completed RENÉ HAINES MD [address] [place] [address],[address], [address], [facility] - [facility] 08/10/2023 16:48:39 Imaging Results None recorded. Procedure Notes None recorded. Medical Equipment None Reported. Allergies Allergen ID Allergen Name Allergen Category Reaction Reaction Severity Criticality Documentation Date Start Date Code Code System Note Provider Name and Address Organization Details Recorded Time 860607 amoxicill in medicatio n other Not available Not available 07/13/2023 723 RxNorm React ion: unkno wn, unspe cifie d;; Not Available [facility] 4 01:14:43 021125 ondansetr on medicatio n Not available Not available Not available 01/23/2025 66188 RxNorm Not Available ruperto - External Data Service - prod 5 04:33:42 515048 ondansetr on hydrochlo ride medicatio n Not [...] 2020 01/22 /2025 completed Medicati on ID: [id number] D uration Value: 12 Brand Name: raffy [...] mg tablet 2018 active Medicati on ID: [id number] D uration Value: 15 Brand Name: zolpidem [...] a day 06/24 completed Medicati on ID: [id number] D uration Value: 30 Prescri bed By Name: Amado Lane MD Brand Name: Zyrtec S end Method: E-Prescr ibed Sub s Allowed: subs OK Medic ationGen ericName : Zyrtec Not Available Not Available Not Available EpiPen 2-Maximo 0.3 mg/0.3 mL injection , auto-inje ctor 1 pen injector intramus cularly 2014 active Medicati on ID: 109315 D uration Value: 1 Prescri bed By Name: Amado Lane MD Brand Name: EpiPen 2-Maximo Se nd Method: E-Prescr ibed Sub s Allowed: subs OK Medic ationGen ericName : EpiPen 2-Maximo Not Available Not Available Not Available Lotemax 0.5 % eye gel drops 01/17 completed Medicati on ID: [id number] D uration Value: 30 Reason: () Brand [...] Details Last Updated DateTime 01/23/2025 170.18 cm DOLORES BOWMAN [place] - [facility] 01/23/2025 15:00:23 Social History None recorded. Functional Status None recorded. Mental Status None recorded. Family History Nothing Reported. Medical History No medical history recorded. Past Encounters Encounter ID Performer Location Encounter Start Date Encounter Closed Date Diagnosis/Indication Diagnosis SNOMED-CT Code Diagnosis ICD10 Code Diagnosis IMO Codes Diagnosis Note [id number] RENÉ HAINES MD [facility] [address] [address] 01/23/2025 14:56:26 01/24/2025 09:03:09 Impacted cerumen of bilateral ears [id number] 552283 H61.23 Recurrent Cerumen Impactions : Ears were meticulous ly cleaned bilaterall y today with a curette and suction. The patient tolerated this well and will follow up for repeat debridemen t per routine. Tinnitus of right ear 48 09058173 108 H93.11 Less bothersome . Will observe. Chronic ec zema of external auditory canal 279018787 H60.8X3 72977901 No purulence today. I sent drops last [...] Dunn Member ID Guarantor Name 01/23/2025 1 [facility] [id number] 1 Bulmaro Okeefe [id number] Bulmaro [place] Notes Date Note Type Note Provider Name and Address Organization Details Recorded Time 01/23/2025 text/html ROS as noted in the HPI He presents for asymmetric hearing loss AD and cerumen impaction. Prior MRI was negative for retrocochlear pathology. He requires frequent debridements of his ears due to cerumen accumulation. RENÉ HAINES MD [address] [place] [address], [place], [address], [facility] - [facility] 01/23/2025 15:13:35
--- OUTSIDE RECORDS SUMMARY | 2025-02-08 00:47 | XMS_ITS | Clinical Summary ---
Author Organization [facility] [address] [facility] Address [address] [place] [address] Phone Care Team Providers Care Hand Trucker Name Role Phone Rodríguez Sanchez MD Primary Care Provider [phone] Allergies Active Allergy Reactions Criticality Noted Date [...] on file Sexual Orientation Not on file Last Filed Vital Signs Vital Sign Reading [...] Years (1 of 2 - PCV) 08/13/1986 RSV Immunization Adult Patients (1 - Risk 50-74 years 1-dose series) 08/13/2017 Zoster Vaccines (1 of 2) 08/13/2017 Depression [...] PM EDT) Anatomical Region Laterality Modality Endoscopy Historical Provider GI~PROCEDURE ORDERABLES F inal Result from Last 3 Months or Most Recently Relevant to Health Maintenance Insurance [facility] Care Teams Hand Trucker Relationship Specialty Start Date End Date Rodríguez Sanchez MD [address] [place] [address] [place] [phone] PCP - General Internal Medicine 06/06/24
== END 2025-02-07 16:33 | disposition home or self-care (01) ==
LOC: HO.HMCHD 16:04
PROVIDERS: PCP Student in an Organized Health Care Education/Training Program; Visit Provider Student in an Organized Health Care Education/Training Program
DX: I10 Essential (primary) hypertension (principal); R19.7 Diarrhea, unspecified; M79.605 Pain in left leg